=== PATIENT | female | born 1950 | race Caucasian/White ===

== ENCOUNTER 2017-10-19 23:00 | Emergency (ER) | payer OTHER ==
[2017-10-19] MEDS ORDERED: ONDANSETRON 4 MG/2 ML VIAL ONE (23:52)
[2017-10-20] MEDS ORDERED: NA CHLORIDE 0.9% 2,000 ML ONE
[2017-10-20 00:17] LABS: Absolute Lymphocytes (CBC) 0.8 K/uL (0.7-4.9); Absolute Monocytes 0.3 K/uL (0.1-1.3); Absolute Neutrophil 8.3 K/uL (1.8-8.0); Basophils % 0.2 % (0-1.3); Eosinophils % 0.4 % (0-4.4); Lymphocytes % 8.9 % (15.3-44.8); MCH 31.6 pg (27.0-35.0); MCV 94.5 fL (80-100); MPV 10.3 fL (7.6-11.3); RBC Red Blood Cell Count 4.23 M/uL (3.86-4.86)
[2017-10-20 00:53] LABS: Albumin 3.7 g/dL (3.4-5.0); Bilirubin Total 0.4 mg/dL (0.2-1.0); Potassium 3.7 mmol/L (3.5-5.1); Protein, Total 7.8 g/dL (6.4-8.2)
[2017-10-20 01:35] LABS: Blood Morphology Comment NOT SEEN (NOT SEEN); Platelet Estimate ADEQ
[2017-10-20 01:53] LABS: Urine Blood 2+ (NEG); Urine Glucose NEGATIVE (NEG); Urine Protein NEGATIVE (NEG); Urine pH 7.5 (5.0-7.0)
[2017-10-20] MEDS ORDERED: DEXAMETHASONE 10 MG/ML VIAL ONE (02:08)
--- NOTE | 2017-10-20 02:08 | ER ---
Nurse's Notes [facility] Name: Addie Fong Age: 67 yrs Sex: Female : 1950 Arrival Date: 10/19/2017 Time: 23:01 Bed 23 Private MD: Drake Taylor Diagnosis: Acute Gastroenteritis;Nausea/Vomiting/Diarrhea;Adrenal Insufficiency Presentation: 10/19 23:05 Presenting complaint: states: that pt has had cough and fever on and off today. fc Then at 2130 she started to vomit. He is concerned due to her hx of adrenal gland issues. Transition of care: patient was not received from another setting of care. Onset of symptoms was October 19, 2017. Risk Assessment: Do you want to hurt yourself or someone else? Patient reports no desire to harm self or others. Initial Sepsis Screen: Does the patient meet any 2 criteria? No. Patient's initial sepsis screen is negative. Does the patient have a suspected source of infection? No. Patient's initial sepsis screen is negative. Care prior to arrival: Medication(s) given: Tylenol, last at 1500. 23:05 Method Of Arrival: Wheelchair 23:05 Acuity: SHAYY 3 Triage Assessment: 10/20 01:30 Pain: Denies pain. rk2 01:30 General: Appears in no apparent distress. well developed, well nourished. General: rk2 Behavior is calm, cooperative, appropriate for age. GI: Reports nausea. Historical: - Allergies: 10/19 23:24 Sulfa (Sulfonamide Antibiotics); fc - Home Meds: 23:24 hydrocortisone 7.5 mg in am and 2.5 mg in the afternoon Oral tab , [Active]; aspirin 81 fc mg Oral chew 1 tab once daily [Active]; atorvastatin 10 mg Oral tab 1 tab once daily [Active]; - PMHx: 23:24 High Cholesterol; Hypertension; Adrenal gland issues; fc - PSHx: 23:24 Hysterectomy; fc - Immunization history:: Last tetanus immunization: unknown. - Social history:: Smoking status: Patient/guardian denies using tobacco. - Ebola Screening: : Patient negative for fever greater than or equal to 101.5 degrees Fahrenheit, and additional compatible Ebola Virus Disease symptoms Patient denies exposure to infectious person Patient denies travel to an Ebola-affected area in the 21 days before illness onset. Screenin:24 Abuse screen: Denies threats or abuse. Nutritional screening: No deficits noted. tl3 Tuberculosis screening: No symptoms or risk factors identified. Fall Risk None identified. Assessment: 23:24 General: Appears distressed, uncomfortable, slender, well groomed, well developed, well tl3 nourished, Behavior is calm, cooperative, appropriate for age. Neuro: Level of Consciousness is awake, alert, obeys commands, Oriented to person, place, time, situation, Appropriate for age. Cardiovascular: Heart tones S1 S2 present Patient's skin is warm and dry. Respiratory: Reports cough that is dry, posttussive emesis Airway is patent Respiratory effort is even, unlabored, Respiratory pattern is regular, symmetrical, Breath sounds are diminished bilaterally. GI: Abdomen is round Bowel sounds present X 4 quads. : No signs and/or symptoms were reported regarding the genitourinary system. EENT: No signs and/or symptoms were reported regarding the EENT system. Derm: No signs and/or symptoms reported regarding the dermatologic system. Musculoskeletal: No signs and/or symptoms reported regarding the musculoskeletal system. 10/20 00:27 Reassessment: Patient and/or family updated on plan of care and expected duration. Pain tl3 level reassessed. Patient is alert, oriented x 3, equal unlabored respirations, skin warm/dry/pink. pt is resting, no more vomiting. 00:57 Reassessment: pt has finished 8oz of hiram cesar. tl3 Vital Signs: 10/19 23:05 BP 153 / 60; Pulse 81; Resp 16; Temp 99.7(O); Pulse Ox 100% on R/A; Weight 64.41 kg fc (R); Height 5 ft. 4 in. (162.56 cm) (R); Pain 0/10; 23:27 BP 126 / 62; Pulse 88; Resp 18; Pulse Ox 100% ; tl3 10/20 00:27 BP 127 / 72; Pulse 83; Resp 18; Pulse Ox 99% on R/A; tl3 01:06 BP 125 / 70; Pulse 97; Resp 17; Pulse Ox 100% on R/A; rk2 02:13 BP 134 / 54; Pulse 88; Resp 17; Pulse Ox 99% on R/A; rk2 10/19 23:05 Body Mass Index 24.37 (64.41 kg, 162.56 cm) ED Course: 10/19 23:01 Patient arrived in ED. am2 23:02 Drake Taylor DO is Private Physician. am2 23:05 Arm band placed on Patient placed in an exam room. fc 23:21 Berto Moseley MD is Attending Physician. ps1 23:21 Triage completed. fc 23:24 Leia Walker, TRACE is Primary Nurse. tl3 23:24 Patient has correct armband on for positive identification. Placed in gown. Bed in low tl3 position. Call light in reach. Side rails up X 1. Adult w/ patient. Pulse ox on. NIBP on. 23:24 No provider procedures requiring assistance completed. tl3 23:45 Inserted saline lock: 22 gauge in left wrist, using aseptic technique. Blood collected. tl3 23:50 X-ray completed. Portable x-ray completed in exam room. Patient tolerated procedure kw well. 23:51 Chest Single View XRAY In Process Unspecified. EDMS 10/20 02:07 Drake Taylor DO is Referral Physician. ps1 02:34 IV discontinued. rk2 Administered Medications: 10/19 23:52 Drug: Zofran 4 mg Route: IVP; Site: left wrist; rk2 10/20 00:05 Follow up: Response: Nausea is decreased tl3 00:05 Drug: NS 0.9% (30 ml/kg) 30 ml/kg {Note: 1900 ml.} Route: IV; Rate: bolus; Site: left tl3 wrist; Delivery: Primary tubing; 02:14 Follow up: Response: No adverse reaction; IV Status: Completed infusion rk2 02:12 Drug: Decadron - Dexamethasone 10 mg Route: IVP; Site: left wrist; rk2 02:12 Follow up: Response: No adverse reaction; No adverse reactiong, given \T\ DC rk2 02:12 CANCELLED (Duplicate Order): Decadron - Dexamethasone 10 mg IVP once rk2 Point of Care Testing: Blood Glucose: 00:27 Blood Glucose: 48 mg/dL; tl3 Ranges: Outcome: 02:07 Discharge ordered by . ps1 02:33 Discharged to home ambulatory. rk2 02:33 Condition: good 02:33 Discharge instructions given to patient, Prescriptions given X 1. 02:35 Patient left the ED. rk2 Signatures: Dispatcher [employer] EDMS Lila Bianchi, RN RN Sherly Barahona Amanda am2 Singer, Phillip, MD MD ps1 Deann Flores RN RN rk2 Leia Walker RN RN tl3
--- NOTE | 2017-10-20 02:08 | EDPHYS ---
Physician Documentation [facility] Name: Addie Fong Age: 67 yrs Sex: Female : 1950 Arrival Date: 10/19/2017 Time: 23:01 Bed 23 Private MD: Drake Taylor ED Physician Berto Moseley HPI: 10/19 23:30 This 67 yrs old Female presents to ER via Wheelchair with complaints of ps1 Vomiting, Doctor Referral. 23:30 hx of adrenal insufficiency on chronic steroids for over a year. Presenting with n/v/d ps1 for a couple fo days. had viral gastroenteritis last week. Patient is now feeling fatigued and having multiple episodes of vomiting and diarrhea. Unable to tolerate PO. Sent in by Dr. Cormier. . Historical: - Allergies: 23:24 Sulfa (Sulfonamide Antibiotics); fc - Home Meds: 23:24 hydrocortisone 7.5 mg in am and 2.5 mg in the afternoon Oral tab , [Active]; aspirin 81 fc mg Oral chew 1 tab once daily [Active]; atorvastatin 10 mg Oral tab 1 tab once daily [Active]; - PMHx: 23:24 High Cholesterol; Hypertension; Adrenal gland issues; fc - PSHx: 23:24 Hysterectomy; fc - Immunization history:: Last tetanus immunization: unknown. - Social history:: Smoking status: Patient/guardian denies using tobacco. - Ebola Screening: : Patient negative for fever greater than or equal to 101.5 degrees Fahrenheit, and additional compatible Ebola Virus Disease symptoms Patient denies exposure to infectious person Patient denies travel to an Ebola-affected area in the 21 days before illness onset. ROS: 23:30 Eyes: Negative for injury, pain, redness, and discharge, ENT: Negative for injury, ps1 pain, and discharge, Cardiovascular: Negative for chest pain, palpitations, and edema, Respiratory: Negative for shortness of breath, cough, wheezing, and pleuritic chest pain, MS/Extremity: Negative for injury and deformity, Skin: Negative for injury, rash, and discoloration, Neuro: Negative for headache, weakness, numbness, tingling, and seizure. 23:30 Constitutional: Positive for chills, fatigue, poor PO intake. 23:30 Abdomen/GI: Positive for nausea, vomiting, and diarrhea. Exam: 23:30 Constitutional: This is a well developed, well nourished patient who is awake, alert, ps1 and in no acute distress. Head/Face: Normocephalic, atraumatic. Eyes: Pupils equal round and reactive to light, extra-ocular motions intact. Lids and lashes normal. Conjunctiva and sclera are non-icteric and not injected. Chest/axilla: Normal chest wall appearance and motion. Nontender with no deformity. No lesions are appreciated. Cardiovascular: Regular rate and rhythm. No gallops, murmurs, or rubs. Normal PMI, no JVD. No pulse deficits. Respiratory: Lungs have equal breath sounds bilaterally, clear to auscultation and percussion. No rales, rhonchi or wheezes noted. No increased work of breathing, no retractions or nasal flaring. Abdomen/GI: Soft, non-tender, with normal bowel sounds. No distension or tympany. No guarding or rebound. No evidence of tenderness throughout. Skin: Warm, dry with normal turgor. Normal color with no rashes, no lesions, and no evidence of cellulitis. MS/ Extremity: Pulses equal, no cyanosis. Neurovascular intact. Full, normal range of motion. Neuro: Awake and alert, GCS 15, oriented to person, place, time, and situation. Cranial nerves II-XII grossly intact. Sensory grossly intact. Psych: Awake, alert, with orientation to person, place and time. Behavior, mood, and affect are within normal limits. Vital Signs: 23:05 BP 153 / 60; Pulse 81; Resp 16; Temp 99.7(O); Pulse Ox 100% on R/A; Weight 64.41 kg fc (R); Height 5 ft. 4 in. (162.56 cm) (R); Pain 0/10; 23:27 BP 126 / 62; Pulse 88; Resp 18; Pulse Ox 100% ; tl3 06 00:27 BP 127 / 72; Pulse 83; Resp 18; Pulse Ox 99% on R/A; tl3 01:06 BP 125 / 70; Pulse 97; Resp 17; Pulse Ox 100% on R/A; rk2 02:13 BP 134 / 54; Pulse 88; Resp 17; Pulse Ox 99% on R/A; rk2 10/19 23:05 Body Mass Index 24.37 (64.41 kg, 162.56 cm) fc MDM: 10/19 23:30 Patient medically screened. [facility] 10/20 02:08 Data reviewed: vital signs, nurses notes, lab test result(s), radiologic studies. ps1 Medication response: Zofran relieved the patient's nausea. 02:08 ED course: cortisol low as compared to ref range. Given she is on chronic steroids and ps1 under physiologic demand from acute gastroenteritis will give decadron. Patient otherwise markedly improved. Will have patient follow up with Dr. Taylor in the morning. . 10/19 23:30 Order name: Blood Culture Adult (2) ps1 10/19 23:30 Order name: CBC with Diff; Complete Time: 01:39 ps1 10/19 23:30 Order name: Lactate; Complete Time: 00:32 ps1 10/19 23:30 Order name: Ptt, Activated; Complete Time: 01:39 ps1 10/19 23:30 Order name: Troponin (emerg Dept Use Only); Complete Time: 00:32 ps1 10/19 23:30 Order name: CMP; Complete Time: 00:56 ps1 10/19 23:30 Order name: Chest Single View XRAY ps1 10/19 23:30 Order name: Cortisol; Complete Time: 01:39 ps1 10/20 00:27 Order name: Manual Differential; Complete Time: 01:39 EDMS 10/20 01:15 Order name: Urine Dipstick--Ancillary (enter results); Complete Time: 01:57 eb 10/19 23:30 Order name: Accucheck; Complete Time: 00:27 ps1 10/19 23:30 Order name: Cardiac monitoring; Complete Time: 00:27 [facility] 10/19 23:30 Order name: EKG - Nurse/Tech; Complete Time: 00:27 [facility] 10/19 23:30 Order name: IV Saline Lock - Large Bore; Complete Time: 00:07 ps1 10/19 23:30 Order name: Labs collected and sent; Complete Time: 00:07 [facility] 10/19 23:30 Order name: O2 Per Protocol; Complete Time: 00:07 [facility] 10/19 23:30 Order name: O2 Sat Monitoring; Complete Time: 00:06 ps1 10/19 23:30 Order name: Urine Dipstick-Ancillary (obtain specimen); Complete Time: 00:06 ps1 Administered Medications: 10/19 23:52 Drug: Zofran 4 mg Route: IVP; Site: left wrist; rk2 10/20 00:05 Follow up: Response: Nausea is decreased tl3 00:05 Drug: NS 0.9% (30 ml/kg) 30 ml/kg {Note: 1900 ml.} Route: IV; Rate: bolus; Site: left tl3 wrist; Delivery: Primary tubing; 02:14 Follow up: Response: No adverse reaction; IV Status: Completed infusion rk2 02:12 Drug: Decadron - Dexamethasone 10 mg Route: IVP; Site: left wrist; rk2 02:12 Follow up: Response: No adverse reaction; No adverse reactiong, given \T\ DC rk2 02:12 CANCELLED (Duplicate Order): Decadron - Dexamethasone 10 mg IVP once rk2 Point of Care Testing: Blood Glucose: 00:27 Blood Glucose: 48 mg/dL; tl3 Ranges: Critical Glucose Levels:Adult <50 mg/dl or >400 mg/dl <40 mg/dl or >180 mg/dl Disposition: 10/20/17 02:07 Discharged to Home. Impression: Acute Gastroenteritis, Nausea/Vomiting/Diarrhea, Adrenal Insufficiency. - Condition is Stable. - Discharge Instructions: Viral Gastroenteritis. - Prescriptions for Zofran 4 mg Oral Tablet - take 1 tablet by ORAL route every 12 hours As needed; 20 tablet. - Medication Reconciliation Form, Thank You Letter, Antibiotic Education, Prescription Opioid Use form. - Follow up: Drake Taylor DO; When: Tomorrow; Reason: Further diagnostic work-up, Recheck today's complaints, Continuance of care, Re-evaluation by your physician. Follow up: Emergency Department; When: As needed; Reason: Fever > 102 F, Trouble breathing, Worsening of condition. - Problem is new. - Symptoms have improved. Signatures: Dispatcher [employer] EDMS Lila Bianchi RN RN fc Singer, Phillip, MD MD ps1 Kidder, Rhonda, RN RN rk2 Leia Walker RN RN tl3 Corrections: (The following items were deleted from the chart) 02:12 02:12 Decadron - Dexamethasone 10 mg IVP once ordered. rk2 rk2 02:35 02:07 10/20/2017 02:07 Discharged to Home. Impression: Acute Gastroenteritis; rk2 Nausea/Vomiting/Diarrhea; Adrenal Insufficiency. Condition is Stable. Forms are Medication Reconciliation Form, Thank You Letter, Antibiotic Education, Prescription Opioid Use. Follow up: Drake Taylor; When: Tomorrow; Reason: Further diagnostic work-up, Recheck today's complaints, Continuance of care, Re-evaluation by your physician. Follow up: Emergency Department; When: As needed; Reason: Fever > 102 F, Trouble breathing, Worsening of condition. Problem is new. Symptoms have improved. ps1
--- NOTE | 2017-10-20 08:34 | RAD REPORT ---
EXAM DESCRIPTION: Meli Single View10/19/2017 11:50 pm CLINICAL HISTORY: Cough COMPARISON: 2016 FINDINGS: The lungs appear clear of acute infiltrate. The heart is normal size IMPRESSION: No acute abnormalities displayed
[2017-10-20 10:30] VITALS: TEMP 99.7
[2017-10-20 10:35] VITALS: BP 134/54; O2SAT 99
== END 2017-10-20 02:35 | disposition home or self-care (01) ==
LOC: ER 23:00
DX: K52.9 Noninfective gastroenteritis and colitis, unspecified (principal); E27.40 Unspecified adrenocortical insufficiency; I10 Essential (primary) hypertension; E78.00 Pure hypercholesterolemia, unspecified; Z88.2 Allergy status to sulfonamides
CPT/HCPCS: 36415 ×2; 71045; 80053; 81003; 82533; 82962; 83605; 84484; 85025; 85730; 87040 ×2; 93005; 96361; 96374; 96375; 99284; J1100; J2405; J7030; 96365; 96366

== ENCOUNTER 2020-08-06 15:04 | Emergency (ER) | payer OTHER ==
[2020-08-06] MEDS ORDERED: LIDOCAINE 1% MPF 5 ML VIAL ONE (19:00)
[2020-08-06] MEDS ORDERED: DERMABOND SKIN ADHESIVE TOP ONE ×2 (19:25→19:42)
[2020-08-06] MEDS ORDERED: TETANUS & DIPHTHERIA TOX,ADULT 0.5 ML VIAL ONE (19:27)
--- NOTE | 2020-08-06 19:44 | ER ---
Nurse's Notes [facility] Name: Addie Fong Age: 69 yrs Sex: Female : 1950 Arrival Date: 08/06/2020 Time: 15:05 Bed 17 Private MD: Diagnosis: Laceration without foreign body, left lower leg Presentation: 08/06 15:32 Chief complaint: Patient states: Tripped and hit L leg on zigzag appliquer. <4 cm flap laceration ll1 to LLE. Bleeding controlled. Gait steady. Coronavirus screen: Client denies travel out of the [place] in the last 14 days. At this time, the client does not indicate any symptoms associated with coronavirus-19. Ebola Screen: Patient denies travel to an Ebola-affected area in the 21 days before illness onset. Complicating Factors: There are no complicating factors for this patient. Initial Sepsis Screen: Does the patient meet any 2 criteria? No. Patient's initial sepsis screen is negative. Does the patient have a suspected source of infection? Yes: Skin breakdown/wound. Risk Assessment: Do you want to hurt yourself or someone else? Patient reports no desire to harm self or others. Onset of symptoms was August 06, 2020. 15:32 Method Of Arrival: Ambulatory ll1 15:32 Acuity: SHAYY 4 ll1 Historical: - Allergies: 15:34 Sulfa (Sulfonamide Antibiotics); ll1 - PMHx: 15:34 Adrenal gland issues; High Cholesterol; Hypertension; ll1 - PSHx: 15:34 Hysterectomy; ll1 - Immunization history:: Adult Immunizations up to date, Last tetanus immunization: < 10 years ago. - Social history:: Smoking status: Patient denies any tobacco usage or history of. Screenin:49 Abuse screen: Denies threats or abuse. Nutritional screening: No deficits noted. bw Tuberculosis screening: No symptoms or risk factors identified. Fall Risk None identified. Assessment: 18:49 Pain: Complains of pain in left leg. Neuro: No deficits noted. Cardiovascular: No bw deficits noted. Respiratory: No deficits noted. GI: No deficits noted. : No deficits noted. EENT: No deficits noted. Derm: No deficits noted. Musculoskeletal: Reports pain in right leg. Injury Description: Laceration is 0.5 to 2.5 cm long, not bleeding, is bleeding a small amount. 19:13 General: Appears in no apparent distress. comfortable, Behavior is calm, cooperative. sf Pain: Complains of pain in left leg. Neuro: No deficits noted. Level of Consciousness is awake, alert, Oriented to person, place, time, situation. Cardiovascular: No deficits noted. Patient's skin is warm and dry. Respiratory: No deficits noted. Airway is patent Respiratory effort is even, unlabored, Respiratory pattern is regular, symmetrical. Derm: Wound noted left douglas Wound is V shaped laceration. Vital Signs: 15:32 BP 158 / 70; Pulse 66; Resp 16; Temp 98.0; Pulse Ox 100% ; Pain 1/10; ll1 ED Course: 15:05 Patient arrived in ED. as 15:31 Arm band placed on Patient notified of wait time. ll1 15:34 Triage completed. ll1 18:22 Angelo Oden NP is PHCP. pm1 18:22 Marco Antonio Martínez MD is Attending Physician. pm1 18:42 Luz Norris, TRACE is Primary Nurse. bw 18:49 Call light in reach. Side rails up X 1. Pulse ox on. NIBP on. Warm blanket given. bw 18:49 No provider procedures requiring assistance completed. Patient did not have IV access bw during this emergency room visit. 19:13 Primary Nurse role handed off by Luz Norris, TRACE 19:13 Evans Roman, TRACE is Primary Nurse. sf 19:52 Wound care: to laceration located on left douglas was dressed with 4X4s, Kerlix, Patient sf tolerated well. Administered Medications: 19:01 Drug: Lidocaine (1 %) 5 ml Volume: 5 ml; Route: Infiltration; bw 19:36 Follow up: Response: No adverse reaction sf 19:35 Drug: Tetanus-Diphtheria Toxoid Adult 0.5 ml {Hide Worker: [employer]. Exp: sf 10/06/2021. Lot #: [id number]. } Route: IM; Site: right deltoid; 19:52 Follow up: Response: No adverse reaction sf Outcome: 19:43 Discharge ordered by . pm1 19:52 Discharged to home ambulatory. sf 19:52 Condition: stable 19:52 Discharge instructions given to patient, family, Instructed on discharge instructions, follow up and referral plans. medication usage, Demonstrated understanding of instructions, follow-up care, medications, wound care, Prescriptions given X 1. 19:54 Patient left the ED. sf Signatures: Meeta Wells Patrick, NP [employer] pm1 Carrol Nichols RN RN ll1 Evans Roman RN RN sf Luz Norris RN RN
--- NOTE | 2020-08-06 19:44 | EDPHYS ---
Physician Documentation [facility] Name: Addie Fong Age: 69 yrs Sex: Female : 1950 Arrival Date: 08/06/2020 Time: 15:05 Bed 17 Private MD: ED Physician Marco Antonio Martínez HPI: 08/06 19:39 This 69 yrs old Female presents to ER via Ambulatory with complaints of pm1 Laceration To Leg. 19:39 The patient has a laceration related to: doing yard work, occurred at home, and there pm1 are no complicating factors. The injury was Walking by some paving stones that were stacked and meant to line her yard. Lost balance and she cut her leg against the stones. The laceration(s) is(are) located on the left douglas. Onset: The symptoms/episode began/occurred just prior to arrival. Associated signs and symptoms: Pertinent negatives: deformity, heavy bleeding, suspected foreign body. The patient has not experienced similar symptoms in the past. The patient has not recently seen a physician. Historical: - Allergies: 15:34 Sulfa (Sulfonamide Antibiotics); ll1 - PMHx: 15:34 Adrenal gland issues; High Cholesterol; Hypertension; ll1 - PSHx: 15:34 Hysterectomy; ll1 - Immunization history:: Adult Immunizations up to date, Last tetanus immunization: < 10 years ago. - Social history:: Smoking status: Patient denies any tobacco usage or history of. ROS: 19:39 Constitutional: Negative for fever, chills, and weight loss, Cardiovascular: Negative pm1 for chest pain, palpitations, and edema, Respiratory: Negative for shortness of breath, cough, wheezing, and pleuritic chest pain. 19:39 Neuro: Negative for headache, weakness, numbness, tingling, and seizure. 19:39 MS/extremity: Positive for laceration, of the left douglas, Negative for decreased range of motion, deformity. 19:39 Skin: Positive for laceration(s), of the left douglas. Exam: 19:39 Constitutional: This is a well developed, well nourished patient who is awake, alert, pm1 and in no acute distress. Head/Face: Normocephalic, atraumatic. 19:39 Cardiovascular: Exam negative for acute changes, Rate: normal, Rhythm: regular, Pulses: no pulse deficits are appreciated. 19:39 Respiratory: Exam negative for acute changes, respiratory distress, shortness of breath. 19:39 Skin: Appearance: normal except for affected area, injury, laceration(s), that can be described as clean, no foreign body, irregular, without bleeding, 6 cm Skin flap with half of it being a skin tear. Vital Signs: 15:32 BP 158 / 70; Pulse 66; Resp 16; Temp 98.0; Pulse Ox 100% ; Pain 1/10; ll1 Laceration: 19:39 Wound Repair of 6cm ( 2.4in ) subcutaneous laceration to medial aspect of left calf. pm1 Irregularly shaped.. Skin/tissue flap noted.. Distal neuro/vascular/tendon intact. Anesthesia: Local anesthetic administered with 4 mls of 1% lidocaine. Wound prep: Extensive cleansing with hibiclenz by me, Wound irrigation with saline by me, Wound explored extensively, Copious irrigation. Skin closed with 5 5-0 Prolene using simple sutures and sterile technique. Subcutaneous tissue closed with 1 5-0 fast absorbing gut using simple sutures and sterile technique. Skin closed with thin layer Adhesive skin closure using Dermabond. Dressed with 4x4's. Patient tolerated well. MDM: 18:22 Patient medically screened. pm1 19:39 Data reviewed: vital signs. Data interpreted: Pulse oximetry: on room air is 100 %. pm1 Interpretation: normal. Counseling: I had a detailed discussion with the patient and/or guardian regarding: the historical points, exam findings, and any diagnostic results supporting the discharge/admit diagnosis, the need for outpatient follow up, to return to the emergency department if symptoms worsen or persist or if there are any questions or concerns that arise at home, suture removal in 10-14 days. 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 Exp: sf 10/06/2021. Lot #: [id number]. } Route: IM; Site: right deltoid; 19:52 Follow up: Response: No adverse reaction Disposition: 08/07 07:02 Co-signature as Attending Physician, Marco Antonio Martínez MD. rn Disposition: 08/06/20 19:43 Discharged to Home. Impression: Laceration without foreign body, left lower leg. - Condition is Stable. - Discharge Instructions: Tissue Adhesive Wound Care, Stitches, [place], or Adhesive Wound Closure. - Prescriptions for Keflex 500 mg Oral Capsule - take 1 capsule by ORAL route every 8 hours for 10 days; 30 capsule. - Medication Reconciliation Form, Thank You Letter, Antibiotic Education, Prescription Opioid Use form. - Follow up: Emergency Department; When: As needed; Reason: Worsening of condition. Follow up: Private Physician; When: 10 - 14 days; Reason: Recheck today's complaints, Continuance of care, Staple/Suture removal, Re-evaluation by your physician. - Problem is new. - Symptoms have improved. Signatures: Marco Antonio Martínez MD MD rn Marinas, Patrick, CLARITZA GLOBAL CLINICAL LEADER pm1 Carrol Nichols RN RN 1 Evans Roman RN RN Luz Norris RN RN Corrections: (The following items were deleted from the chart) 08/06 19:54 19:43 08/06/2020 19:43 Discharged to Home. Impression: Laceration without foreign body, sf left lower leg. Condition is Stable. Forms are Medication Reconciliation Form, Thank You Letter, Antibiotic Education, Prescription Opioid Use. Follow up: Emergency Department; When: As needed; Reason: Worsening of condition. Follow up: Private Physician; When: 10 - 14 days; Reason: Recheck today's complaints, Continuance of care, Staple/Suture removal, Re-evaluation by your physician. Problem is new. Symptoms have improved. pm1
[2020-08-06 20:13] VITALS: BP 158/70; TEMP 98; O2SAT 100
== END 2020-08-06 19:54 | disposition home or self-care (01) ==
LOC: ER 15:04
PROC: 0JQP0ZZ Repair Left Lower Leg Subcutaneous Tissue and Fascia, Open Approach (ICD-10-PCS; principal; 2020-08-06)
DX: S81.812A Laceration without foreign body, left lower leg, initial encounter (principal); W22.8XXA Striking against or struck by other objects, initial encounter; Y93.01 Activity, walking, marching and hiking; Y92.89 Other specified places as the place of occurrence of the external cause; Z23 Encounter for immunization; Z88.2 Allergy status to sulfonamides; I10 Essential (primary) hypertension
CPT/HCPCS: 90471; 90714; 99284

== ENCOUNTER 2020-08-13 09:04 | Emergency (ER) | payer OTHER ==
--- NOTE | 2020-08-13 09:36 | EDPHYS ---
Physician Documentation [facility] Name: Addie Fong Age: 69 yrs Sex: Female : 1950 Arrival Date: 08/13/2020 Time: 09:05 Bed 24 Private MD: ED Physician Matt Gunderson HPI: 08/13 09:31 This 69 yrs old Female presents to ER via Unassigned with complaints of kb Suture Recheck. 09:31 Patient presents to ED for recheck of: laceration. The affected area is on the medial kb aspect of left calf. Previous treatment: The patient was initially treated 8 day(s) ago, the care was rendered at [facility], Treatment type: The patient's original treatment included sutures. Progress: The patient reports excellent improvement in the affected area. There has been resolution, improvement, or non-development of any drainage, fever, pain, redness or swelling. The patient has not experienced similar symptoms in the past. The patient has not recently seen a physician. Pt presents to have laceration repair evaluated. Pt states she was told to have it looked at between day 7 and 14. Today is day 8 so she wanted to get it looked at to make sure it was healing ok. Denies any issue with laceration repair, no drainage, redness, swelling. . Historical: - Allergies: 09:30 Sulfa (Sulfonamide Antibiotics); aa5 - PMHx: 09:30 Adrenal gland issues; High Cholesterol; Hypertension; aa5 - Immunization history:: Adult Immunizations unknown. - Social history:: Smoking status: Patient denies any tobacco usage or history of. ROS: 09:31 Constitutional: Negative for fever, chills, and weight loss, MS/Extremity: Negative for kb injury and deformity, Neuro: Negative for headache, weakness, numbness, tingling, and seizure. 09:31 Skin: Positive for laceration(s), of the medial aspect of left calf, sutures in place. Exam: :31 Constitutional: This is a well developed, well nourished patient who is awake, alert, kb and in no acute distress. Head/Face: Normocephalic, atraumatic. MS/ Extremity: Pulses equal, no cyanosis. Neurovascular intact. Full, normal range of motion. Neuro: Awake and alert, GCS 15, oriented to person, place, time, and situation. Moves all extremities. Normal gait. 09:31 Skin: Wound recheck: Suture laceration closure: the wound is healing well, the edges are well approximated, no evidence of dehiscence, no drainage, no erythema, no swelling. Vital Signs: 09:23 BP 139 / 62; Pulse 64; Resp 16 S; Temp 98.2(TE); Pulse Ox 100% on R/A; aa5 MDM: 09:25 Patient medically screened. kb 09:34 Data reviewed: vital signs, nurses notes. Data interpreted: Pulse oximetry: on room air kb is 100 %. Interpretation: normal. Counseling: I had a detailed discussion with the patient and/or guardian regarding: the historical points, exam findings, and any diagnostic results supporting the discharge/admit diagnosis, the need for outpatient follow up, a family practitioner, to return to the emergency department if symptoms worsen or persist or if there are any questions or concerns that arise at home. ED course: Pt educated to return on day 10 or 11 post procedure to have sutures re-evaluated for removal. . 08/13 09:31 Order name: Wound dressing; Complete Time: 09:41 kb Administered Medications: No medications were administered Disposition: 16:04 Co-signature as Attending Physician, Matt Gunderson MD I agree with the assessment and kdr plan of care. Disposition: 08/13/20 09:35 Discharged to Home. Impression: Encounter for attention to dressings, sutures and drains - evaluation of sutures and wound healing. - Condition is Stable. - Discharge Instructions: Laceration Care, Adult, Euxr-[id number]. - Medication Reconciliation Form, Thank You Letter, Antibiotic Education, Prescription Opioid Use form. - Follow up: Emergency Department; When: As needed; Reason: Worsening of condition. Follow up: Private Physician; When: 2 - 3 days; Reason: Recheck today's complaints, Continuance of care, Re-evaluation by your physician. Signatures: Heike Guidry, LAURA-C LAURA-Matt Rodriguez MD MD [facility] Edie Celis RN RN aa5 Corrections: (The following items were deleted from the chart) 09:42 09:35 08/13/2020 09:35 Discharged to Home. Impression: Encounter for attention to aa5 dressings, sutures and drains - evaluation of sutures and wound healing. Condition is Stable. Forms are Medication Reconciliation Form, Thank You Letter, Antibiotic Education, Prescription Opioid Use. Follow up: Emergency Department; When: As needed; Reason: Worsening of condition. Follow up: Private Physician; When: 2 - 3 days; Reason: Recheck today's complaints, Continuance of care, Re-evaluation by your physician. kb 10:06 09:31 The affected area is on the lateral aspect of right calf, kb kb 10:07 09:31 Skin: Positive for laceration(s), of the lateral aspect of right calf, sutures in kb place, kb
--- NOTE | 2020-08-13 09:42 | ER ---
Nurse's Notes [facility] Name: Addie Fogn Age: 69 yrs Sex: Female : 1950 Arrival Date: 08/13/2020 Time: 09:05 Bed 24 Private MD: Diagnosis: Encounter for attention to dressings, sutures and drains-evaluation of sutures and wound healing Presentation: 08/13 09:23 Chief complaint: Patient states: "I got sutures on my left leg 8 days ago and I came in aa5 to check if they are ready to come out". 09:23 Coronavirus screen: At this time, the client does not indicate any symptoms associated aa5 with coronavirus-19. Ebola Screen: Patient negative for fever greater than or equal to 101.5 degrees Fahrenheit, and additional compatible Ebola Virus Disease symptoms. Initial Sepsis Screen: Does the patient meet any 2 criteria? No. Patient's initial sepsis screen is negative. Does the patient have a suspected source of infection? No. Patient's initial sepsis screen is negative. Risk Assessment: Do you want to hurt yourself or someone else? Patient reports no desire to harm self or others. Onset of symptoms was August 13, 2020. 09:23 Acuity: SHAYY 5 aa5 09:23 Method Of Arrival: Ambulatory aa5 Historical: - Allergies: 09:30 Sulfa (Sulfonamide Antibiotics); aa5 - PMHx: 09:30 Adrenal gland issues; High Cholesterol; Hypertension; aa5 - Immunization history:: Adult Immunizations unknown. - Social history:: Smoking status: Patient denies any tobacco usage or history of. Screenin:30 Abuse screen: Denies threats or abuse. Nutritional screening: No deficits noted. aa5 Tuberculosis screening: No symptoms or risk factors identified. Fall Risk None identified. Assessment: 09:23 General: Appears comfortable, Behavior is calm, cooperative. Pain: Denies pain. Neuro: aa5 Level of Consciousness is awake, alert, obeys commands, Oriented to person, place, time, situation. Cardiovascular: Patient's skin is warm and dry. Respiratory: Airway is patent Respiratory effort is even, unlabored, Respiratory pattern is regular, symmetrical. GI: No signs and/or symptoms were reported involving the gastrointestinal system. : No signs and/or symptoms were reported regarding the genitourinary system. EENT: hearing aids noted to both ears . Derm: Skin is pink, warm \\T\\ dry. Wound that is triangular in shape noted to left douglas, mild drainage noted to wound, wound appears as necrotic with redness around it, sutures in place. Musculoskeletal: Range of motion: intact in all extremities. 09:35 Reassessment: No need for suture removal at this time per MANAGER COST. aa5 09:40 Reassessment: Wound dressed with non-adherent dressing, abd pad, and paper tape per aa5 pt's request. . 09:41 Reassessment: Patient is alert, oriented x 3, equal unlabored respirations, skin aa5 warm/dry/pink. Vital Signs: 09:23 BP 139 / 62; Pulse 64; Resp 16 S; Temp 98.2(TE); Pulse Ox 100% on R/A; aa5 ED Course: 09:05 Patient arrived in ED. as 09:10 Heike Guidry FNP-C [facility] kb 09:10 Matt Gunderson MD is Attending Physician. kb 09:23 Edie Celis, RN is Primary Nurse. aa5 09:23 Arm band placed on Patient placed in an exam room, on a stretcher. aa5 09:23 Patient has correct armband on for positive identification. Bed in low position. Call aa5 light in reach. Side rails up X 1. Adult w/ patient. 09:42 No provider procedures requiring assistance completed. Patient did not have IV access aa5 during this emergency room visit. 09:58 Triage completed. aa5 Administered Medications: No medications were administered Outcome: 09:35 Discharge ordered by . kb 09:41 Discharged to home ambulatory. aa5 09:41 Condition: stable 09:41 Discharge instructions given to patient, Instructed on discharge instructions, follow up and referral plans. Demonstrated understanding of instructions, follow-up care. 09:42 Patient left the ED. aa5 Signatures: Heike Guidry FNP-C FNP-Meeta Deluna as Edie Celis, RN RN aa5 Corrections: (The following items were deleted from the chart) 10:06 09:23 Derm: Skin is pink, warm \\T\\ dry. Wound that is triangular in shape noted to right aa5 douglas, mild drainage noted to wound, wound appears as necrotic with redness around it, sutures in place. aa5
== END 2020-08-13 09:42 | disposition home or self-care (01) ==
LOC: ER 09:04
DX: Z48.01 Encounter for change or removal of surgical wound dressing (principal); S81.812D Laceration without foreign body, left lower leg, subsequent encounter; I10 Essential (primary) hypertension; E78.00 Pure hypercholesterolemia, unspecified
CPT/HCPCS: 99281

== ENCOUNTER 2020-08-15 14:07 | Emergency (ER) | payer OTHER ==
--- NOTE | 2020-08-15 15:07 | ER ---
Nurse's Notes [facility] Name: Addie Fong Age: 69 yrs Sex: Female : 1950 Arrival Date: 08/15/2020 Time: 14:11 Bed 23 Private MD: Drake Taylor Diagnosis: Encounter for removal of sutures Presentation: 08/15 14:23 Chief complaint: Patient states: Needs sutures removed from LLE. No fever or pain since ll1 having them placed here 10 days ago. Coronavirus screen: Client denies travel out of the [place] in the last 14 days. At this time, the client does not indicate any symptoms associated with coronavirus-19. Ebola Screen: Patient denies travel to an Ebola-affected area in the 21 days before illness onset. Initial Sepsis Screen: Does the patient meet any 2 criteria? No. Patient's initial sepsis screen is negative. Does the patient have a suspected source of infection? Yes: Skin breakdown/wound. Risk Assessment: Do you want to hurt yourself or someone else? Patient reports no desire to harm self or others. Onset of symptoms was August 05, 2020. 14:23 Method Of Arrival: Ambulatory ll1 14:23 Acuity: SHAYY 4 ll1 Historical: - Allergies: 14:25 Sulfa (Sulfonamide Antibiotics); ll1 - PMHx: 14:25 Adrenal gland issues; High Cholesterol; Hypertension; ll1 - Immunization history:: Last tetanus immunization: up to date Flu vaccine is up to date. - Social history:: Smoking status: Patient denies any tobacco usage or history of. Screenin:00 Abuse screen: Denies threats or abuse. Denies injuries from another. Nutritional ss screening: No deficits noted. Tuberculosis screening: Never had TB. Fall Risk None identified. Assessment: 15:00 General: Appears in no apparent distress. comfortable. General: 5 sutures removed from ss L calf. By CLARITZA valdez. Pt tolerated well. Steri strips applied. . Pain: Denies pain. Neuro: Level of Consciousness is awake, alert, obeys commands, Oriented to person, place, time, situation. Cardiovascular: Capillary refill < 3 seconds is brisk in bilateral fingers. Respiratory: Airway is patent Respiratory effort is even, unlabored, Respiratory pattern is regular, symmetrical. EENT: Oral mucosa is moist. Derm: Skin is intact, is healthy with good turgor, Skin is dry, Skin is pink, warm \T\ dry. normal. Musculoskeletal: Circulation, motion, and sensation intact. Range of motion: intact in all extremities, Swelling absent. Vital Signs: 14:23 BP 175 / 56; Pulse 64; Resp 16; Temp 97.2; Pulse Ox 96% on R/A; Weight 67.59 kg; Height ll1 5 ft. 4 in. (162.56 cm); Pain 0/10; 14:23 Body Mass Index 25.58 (67.59 kg, 162.56 cm) ll1 ED Course: 14:11 Patient arrived in ED. mr 14:11 Drake Taylor DO is Private Physician. mr 14:25 Triage completed. ll1 14:25 Arm band placed on. ll1 14:26 Heike Guid[facility]-C [facility]. kb 14:26 Matt Gunderson MD is Attending Physician. kb 15:00 Patient has correct armband on for positive identification. Bed in low position. 15:00 Assist provider with bone marrow aspiration. Patient did not have IV access during this emergency room visit. Removal of Removed sutures from medial aspect of left calf Suture site is well healed Patient tolerated well. 15:10 Jovita Blas, RN is Primary Nurse. Administered Medications: No medications were administered Outcome: 15:00 Discharged to home ambulatory. ss 15:00 Condition: good 15:00 Discharge instructions given to patient, Demonstrated understanding of instructions, wound care. 15:06 Discharge ordered by . kb 15:16 Patient left the ED. Signatures: Heike Guidry FNP-C FNP-Rosie Araceli Penny mr Jovita Blas, RN RN Carrol Nichols RN RN ll1
--- NOTE | 2020-08-15 15:07 | EDPHYS ---
Physician Documentation [facility] Name: Addie Fong Age: 69 yrs Sex: Female : 1950 Arrival Date: 08/15/2020 Time: 14:11 Bed 23 Private MD: Drake Taylor ED Physician Matt Gunderson HPI: 08/15 14:54 This 69 yrs old Female presents to ER via Ambulatory with complaints of kb Suture Removal. 14:54 The patient has sutures on the medial aspect of left calf. Previous treatment: The kb patient was initially treated 10 day(s) ago, the care was rendered at [facility]. Sutures/mal progress: The patient has no c/o's. The wound is well-healing with no redness, swelling, discharge, or dehiscence reported. The patient has not experienced similar symptoms in the past. The patient has not recently seen a physician. Historical: - Allergies: 14:25 Sulfa (Sulfonamide Antibiotics); ll1 - PMHx: 14:25 Adrenal gland issues; High Cholesterol; Hypertension; ll1 - Immunization history:: Last tetanus immunization: up to date Flu vaccine is up to date. - Social history:: Smoking status: Patient denies any tobacco usage or history of. ROS: 14:58 Constitutional: Negative for fever, chills, and weight loss, MS/Extremity: Negative for kb injury and deformity, Neuro: Negative for headache, weakness, numbness, tingling, and seizure. 14:58 Skin: Positive for of the medial aspect of left calf, sutures in place. Exam: 15:05 Constitutional: This is a well developed, well nourished patient who is awake, alert, kb and in no acute distress. Head/Face: Normocephalic, atraumatic. MS/ Extremity: Pulses equal, no cyanosis. Neurovascular intact. Full, normal range of motion. Neuro: Awake and alert, GCS 15, oriented to person, place, time, and situation. Moves all extremities. Normal gait. 15:05 Skin: Wound recheck: Suture laceration closure: the wound is healing well, the edges are well approximated, no evidence of dehiscence, no drainage, no erythema, no swelling. Vital Signs: 14:23 BP 175 / 56; Pulse 64; Resp 16; Temp 97.2; Pulse Ox 96% on R/A; Weight 67.59 kg; Height ll1 5 ft. 4 in. (162.56 cm); Pain 0/10; 14:23 Body Mass Index 25.58 (67.59 kg, 162.56 cm) ll1 Procedures: 14:53 Suture/Staple removal: Removed 5 sutures, from medial aspect of left calf, site appears kb well healed, dressed with steri-strips. Patient tolerated well. MDM: 14:27 Patient medically screened. kb 14:53 Data reviewed: vital signs, nurses notes. Data interpreted: Pulse oximetry: on room air kb is 96 %. Interpretation: normal. Counseling: I had a detailed discussion with the patient and/or guardian regarding: the historical points, exam findings, and any diagnostic results supporting the discharge/admit diagnosis, the need for outpatient follow up, a family practitioner, to return to the emergency department if symptoms worsen or persist or if there are any questions or concerns that arise at home. Administered Medications: No medications were administered Disposition: 08/16 06:55 Co-signature as Attending Physician, Matt Gunderson MD I agree with the assessment and kdr plan of care. Disposition: 08/15/20 15:06 Discharged to Home. Impression: Encounter for removal of sutures. - Condition is Stable. - Discharge Instructions: Suture Removal, Care After. - Medication Reconciliation Form, Thank You Letter, Antibiotic Education, Prescription Opioid Use form. - Follow up: Emergency Department; When: As needed; Reason: Worsening of condition. Follow up: Private Physician; When: 2 - 3 days; Reason: Recheck today's complaints, Continuance of care, Re-evaluation by your physician. Signatures: Heike Guidry, DIRECTOR OF COMPENSATION-C DIRECTOR OF COMPENSATION-Ckb Matt Gunderson MD MD [facility] Jovita Blas RN RN Carrol Guevara RN RN ll1 Corrections: (The following items were deleted from the chart) 08/15 15:16 15:06 08/15/2020 15:06 Discharged to Home. Impression: Encounter for removal of ss sutures. Condition is Stable. Forms are Medication Reconciliation Form, Thank You Letter, Antibiotic Education, Prescription Opioid Use. Follow up: Emergency Department; When: As needed; Reason: Worsening of condition. Follow up: Private Physician; When: 2 - 3 days; Reason: Recheck today's complaints, Continuance of care, Re-evaluation by your physician. kb
== END 2020-08-15 15:16 | disposition home or self-care (01) ==
LOC: ER 14:07
DX: Z48.02 Encounter for removal of sutures (principal)
CPT/HCPCS: 99284

== ENCOUNTER 2021-08-29 09:58 | Day surgery (SDC) | payer OTHER ==
--- NOTE | 2021-08-26 09:34 | EKG ---
Test Date: 2021-08-25 Test Time: 12:12:48 High School Band Teacher: LENA MEASUREMENT RESULTS: Intervals: Rate: 54 IN: 226 QRSD: 84 QT: 448 QTc: 424 Procious: P: 80 IN: 226 QRS: -16 T: 74 INTERPRETIVE STATEMENTS: Sinus bradycardia with 1st degree AV block Nonspecific T wave abnormality Abnormal ECG Compared to ECG 10/20/2017 00:15:22 T-wave abnormality now present Sinus rhythm no longer present Left-axis deviation no longer present Electronically Signed On 08-26-21 09:31:59 CDT by Clay Theodore
[2021-08-29] MEDS ORDERED: Ringers Lactate 1,000 ML IV ONE (10:23)
[2021-08-29] MEDS ORDERED: LIDOCAINE 1% W/EPI 1:100,000 10 ML VIAL ONE (12:44)
[2021-08-29] MEDS ORDERED: propofoL 200 MG/20 ML VIAL IV ONE (12:46)
[2021-08-29] MEDS ORDERED: FENTANYL CITR 100 MCG/2 ML ONE (12:46)
[2021-08-29] MEDS ORDERED: MIDAZOLAM HCL 2 MG/2 ML INJ ONE (12:46)
[2021-08-29] MEDS ORDERED: LIDOCAINE 2% MPF 5 ML VIAL ONE (12:47)
[2021-08-29] MEDS ORDERED: HYDROCORTISONE SUC 100 MG INJ ONE (12:51)
[2021-08-29] MEDS ORDERED: ONDANSETRON 4 MG/2 ML VIAL ONE (13:00)
[2021-08-29] MEDS ORDERED: GLYCOPYRROLATE 0.2 MG/ML SYR ONE (13:08)
[2021-08-29] MEDS ORDERED: EPHEDRINE SULF 50 MG/ML VIAL ONE (13:10)
[2021-08-29] MEDS ORDERED: KETOROLAC 30 MG/ML INJ ONE (14:06)
--- NOTE | 2021-08-29 14:32 | P.OP ---
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 The head of bed was turned approximately 45 degrees for better exposure. The prior biopsy site was examined and showed slight ulceration and crusting. The area surrounding the prior biopsy site was injected with 1% lidocaine with epinephrine. The left ear, face, and neck were prepped with Betadine and draped in a sterile fashion. A 15 blade scalpel was used to make an ovoid incision around the prior biopsy with a gross margin of approximately 3 mm. The full-thickness skin was elevated sharply from the underlying cartilage. A suture was placed at the superiormost aspect to indicate 12:00 and was sent to pathology for frozen section analysis. The 9:00 margin coincided with the lateral most aspect of the helix, the 3:00 margin was located on the mid posterior aspect of the pinna. Bovie electrocautery was used to provide hemostasis around the surgical defect Plans for reconstruction were considered while awaiting frozen section. The pathologist confirmed negative deep and peripheral margins with area of residual basal cell carcinoma noted. Decision was made for a full-thickness skin graft. The defect measured 1.5 x 2.2 cm located primarily on the posterior aspect of the left pinna. A full- thickness skin graft donor site was selected from the left lower neck. The skin was injected with 1% lidocaine with epinephrine. A 2 x 5-1/2 cm fusiform incision was designed centered around an existing skin crease. A 10 scalpel blade was used to harvest the full-thickness skin graft to the layer of the subcutaneous fat. The graft was placed to side. The Bovie electrocautery was then used to undermine around the donor site in order to allow for closure. Layered closure was required in order to reduce tension in the wound and reduce scarring. The deep tissues were approximated using 4-0 Vicryl buried suture. The skin was closed in a running fashion with 5-0 fast absorbing gut The skin graft was trimmed to the appropriate size and secured to the posterior left ear in an interrupted fashion using 2-0 silk sutures. The ends of the suture were left long in order to secure a Xeroform bolster. After placement of the bolster, the surrounding skin was cleaned and dried. Antibiotic ointment was applied to the neck incision along with a sterile bandage. The procedure was concluded, all counts were correct, and the patient was transferred to the recovery room in stable condition. Complications: None Implants: none Fluids & blood products: 850ml crystalloid Transferred to: Recovery Room Condition: Good
[2021-08-29 15:12] VITALS: BP 126/60; TEMP 96.2; O2SAT 100
== END 2021-08-29 15:30 | disposition home or self-care (01) ==
LOC: OR 09:58
PROVIDERS: ATTEND Otolaryngology
PROC: 0HB4XZZ Excision of Neck Skin, External Approach (ICD-10-PCS; 2021-08-29)
PROC: 0HR3X73 Replacement of Left Ear Skin with Autologous Tissue Substitute, Full Thickness, External Approach (ICD-10-PCS; principal; 2021-08-29 11:30)
DX: C44.219 Basal cell carcinoma of skin of left ear and external auricular canal (principal); Z20.822 Contact with and (suspected) exposure to COVID-19
CPT/HCPCS: 11643; 15260; 93005; 88331; 88332; 88305; U0002; J2704; J2250; J3010; J7120; J1720; J2405

== ENCOUNTER 2022-03-22 06:36 | Observation (INO) | payer OTHER ==
[2022-03-22] MEDS ORDERED: HYDROCORTISONE SUC 100 MG INJ ONE (07:31)
[2022-03-22] MEDS ORDERED: ONDANSETRON 4 MG/2 ML VIAL ONE (07:32)
[2022-03-22] MEDS ORDERED: NA CHLORIDE 0.9% 1,000 ML ONE ×2 (07:32→13:41)
[2022-03-22] MEDS ORDERED: NA CHLORIDE 0.9% 50 ML IV ONE (07:32)
[2022-03-22] MEDS ORDERED: ACETAMINOPHEN 500 MG TAB ONE (07:32)
[2022-03-22] MEDS ORDERED: CEFTRIAXONE 1000 MG/VIAL ONE (07:32)
[2022-03-22 08:10] LABS: SARS-COV-2 RT PCR NEGATIVE (NEGATIVE)
[2022-03-22 08:23] LABS: Absolute Lymphocytes (CBC) 0.7 K/uL (0.7-4.9); Hematocrit 35.1 % (36.0-45.0); Lymphocytes % 13.8 % (15.3-44.8); MCV 96.1 fL (80-100); MPV 9.4 fL (7.6-11.3); RBC Red Blood Cell Count 3.65 M/uL (3.86-4.86)
--- NOTE | 2022-03-22 08:53 | RAD REPORT ---
EXAM DESCRIPTION: RAD - Chest Single View - 03/22/2022 8:31 am CLINICAL HISTORY: COUGH Chest pain. COMPARISON: Chest Single View dated 10/19/2017; Chest Single View dated 03/13/2016; Abdomen 1 View (K UB) dated 02/18/2016; Chest Pa And Lat (2 Views) dated 02/10/2016 FINDINGS: Portable technique limits examination quality. The lungs are grossly clear. The heart is upper limit normal in size. Tortuous thoracic aorta. No dis placed fractures. IMPRESSION: No acute intrathoracic process suspected.
--- NOTE | 2022-03-22 08:54 | EDPHYS ---
Physician Documentation [facility] Name: Addie Fong Age: 71 yrs Sex: Female : 1950 Arrival Date: 03/22/2022 Time: 06:40 Bed 19 Private MD: ED Physician Shahab Fallon HPI: 03/22 08:41 This 71 yrs old Female presents to ER via Wheelchair with complaints of keshawn Cough, Vomiting. 08:41 The patient or guardian reports cough, flu symptoms, low-grade fever, myalgias. Onset: keshawn The symptoms/episode began/occurred 1 day(s) ago. Severity of symptoms: At their worst the symptoms were moderate, in the emergency department the symptoms are unchanged. Modifying factors: The symptoms are alleviated by steroids, the symptoms are aggravated by cold weather, exertion. Associated signs and symptoms: Pertinent positives: fever, nausea, vomiting. The patient has experienced similar episodes in the past, multiple times. Historical: - Allergies: 06:50 Sulfa (Sulfonamide Antibiotics); tw5 - Home Meds: 13:52 aspirin 81 mg Oral chew 1 tab once daily [Active]; atorvastatin 10 mg Oral tab 1 tab eh3 once daily [Active]; hydrocortisone 7.5 mg in am and 2.5 mg in the afternoon Oral tab , [Active]; - PMHx: 06:50 Adrenal gland issues; High Cholesterol; Hypertension; tw5 - Immunization history:: Flu vaccine is not up to date. - Social history:: Smoking status: Patient denies any tobacco usage or history of. ROS: 08:43 Eyes: Negative for injury, pain, redness, and discharge, ENT: Negative for injury, keshawn pain, and discharge, Neck: Negative for injury, pain, and swelling, Cardiovascular: Negative for chest pain, palpitations, and edema, Back: Negative for injury and pain, : Negative for injury, bleeding, discharge, and swelling, MS/Extremity: Negative for injury and deformity, Skin: Negative for injury, rash, and discoloration, Neuro: Negative for headache, weakness, numbness, tingling, and seizure, Psych: Negative for depression, anxiety, suicide ideation, homicidal ideation, and hallucinations, Allergy/Immunology: Negative for hives, rash, and allergies, Endocrine: Negative for neck swelling, polydipsia, polyuria, polyphagia, and marked weight changes, Hematologic/Lymphatic: Negative for swollen nodes, abnormal bleeding, and unusual bruising. 08:43 Constitutional: Positive for fever. 08:43 Respiratory: Positive for cough, with no reported sputum, shortness of breath, on exertion. 08:43 Abdomen/GI: Positive for abdominal pain, nausea and vomiting. 08:43 Endocrine: Positive for weakness, hx of adrenal insufficency. Exam: 08:45 Head/Face: Normocephalic, atraumatic. Eyes: Pupils equal round and reactive to light, keshawn extra-ocular motions intact. Lids and lashes normal. Conjunctiva and sclera are non-icteric and not injected. Cornea within normal limits. Periorbital areas with no swelling, redness, or edema. ENT: Nares patent. No nasal discharge, no septal abnormalities noted. Tympanic membranes are normal and external auditory canals are clear. Oropharynx with no redness, swelling, or masses, exudates, or evidence of obstruction, uvula midline. Mucous membranes moist. Neck: Trachea midline, no thyromegaly or masses palpated, and no cervical lymphadenopathy. Supple, full range of motion without nuchal rigidity, or vertebral point tenderness. No Meningismus. Chest/axilla: Normal chest wall appearance and motion. Nontender with no deformity. No lesions are appreciated. Cardiovascular: Regular rate and rhythm with a normal S1 and S2. No gallops, murmurs, or rubs. Normal PMI, no JVD. No pulse deficits. Abdomen/GI: Soft, non-tender, with normal bowel sounds. No distension or tympany. No guarding or rebound. No evidence of tenderness throughout. Back: No spinal tenderness. No costovertebral tenderness. Full range of motion. Female : Normal external genitalia. Skin: Warm, dry with normal turgor. Normal color with no rashes, no lesions, and no evidence of cellulitis. MS/ Extremity: Pulses equal, no cyanosis. Neurovascular intact. Full, normal range of motion. Psych: Awake, alert, with orientation to person, place and time. Behavior, mood, and affect are within normal limits. 08:45 Constitutional: The patient appears febrile. 08:45 Respiratory: the patient does not display signs of respiratory distress, Respirations: normal, no acute changes, Breath sounds: rales, are not appreciated, bronchial sounds, that are mild, decreased breath sounds, that are mild, are scattered, rhonchi, that are mild, are scattered, stridor, is not appreciated, Respiratory rate: 22 08:45 Musculoskeletal/extremity: DVT Exam: No signs of deep vein thrombosis. no pain, no swelling, no tenderness, negative Homans' sign noted on exam, no appreciated bluish discoloration, no erythema, no increased warmth. 09:07 ECG was reviewed by the Attending Physician. [facility] Vital Signs: 06:46 BP 123 / 56; Pulse 84; Resp 22; Temp 100.6; Pulse Ox 95% ; Weight 65.77 kg; Height 5 tw5 ft. 4 in. (162.56 cm); 10:01 BP 124 / 41; Pulse 85; Resp 20; Pulse Ox 94% on R/A; ph 12:16 BP 102 / 49; Pulse 80; Resp 18; Pulse Ox 89% on R/A; ph 13:00 BP 111 / 50; Pulse 78; Resp 18; Temp 98.7(O); Pulse Ox 95% on R/A; eh3 14:00 BP 117 / 40; Pulse 78; Resp 18; Pulse Ox 96% on R/A; eh3 06:46 Body Mass Index 24.89 (65.77 kg, 162.56 cm) tw5 10:01 pt asleep ph 12:16 pt asleep, placed on NCat 2L ph MDM: 07:06 Patient medically screened. keshawn 08:46 Differential diagnosis: asthma, Bronchitis CHF exacerbation, Chronic Obstructive keshawn Pulmonary Disease bronchitis, flu, URI, Myocardial Infarction pneumonia. Antibiotic administration: Rocephin and Zithromax given. The patient's Wells Deep Vein Thrombosis Score was calculated as follows: Total Score: 0-2 Pts- Low Risk. Differential Diagnosis: Bronchitis Influenza Upper Respiratory Infection Pharyngitis Otitis Media Asthma Exacerbation Viral Syndrome Pneumonia. The patient's pulmonary embolism risk score was calculated as follows: Total Score: 0-2 points. This patient was found to be at low risk for a pulmonary embolism by using the Well's assessment criteria. Immunization status: Pneumococcal vaccine: Not up to date Influenza vaccine: Not up to date. Data reviewed: vital signs, nurses notes, lab test result(s), EKG, radiologic studies, plain films. 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 Test interpretation: by ED physician or midlevel provider: ECG, plain radiologic studies. Counseling: I had a detailed discussion with the patient and/or guardian regarding: the historical points, exam findings, and any diagnostic results supporting the discharge/admit diagnosis, lab results, radiology results, the need for further work-up and treatment in the hospital. 03/22 06:52 Order name: COVID-19/FLU A+B; Complete Time: 08:34 sd2 03/22 07:20 Order name: Basic Metabolic Panel; Complete Time: 18:08 [facility] 03/22 07:20 Order name: CBC with Diff; Complete Time: 08:34 [facility] 03/22 07:20 Order name: LFT's; Complete Time: 18:08 [facility] 03/22 07:20 Order name: Magnesium; Complete Time: 18:08 [facility] 03/22 07:20 Order name: NT PRO-BNP; Complete Time: 18:08 [facility] 03/22 07:20 Order name: PT-INR; Complete Time: 18:08 [facility] 03/22 07:20 Order name: Troponin HS; Complete Time: 18:08 [facility] 03/22 07:20 Order name: Blood Culture Adult (2) [facility] 03/22 07:21 Order name: Lipase; Complete Time: 18:08 [facility] 03/22 09:58 Order name: CBC with Automated Diff [facility] 03/22 09:58 Order name: CBC with Automated Diff [facility] 03/22 09:58 Order name: Comprehensive Metabolic Panel [facility] 03/22 09:58 Order name: Comprehensive Metabolic Panel [facility] 03/22 07:20 Order name: XRAY Chest (1 view); Complete Time: 18:08 [facility] 03/22 07:20 Order name: EKG; Complete Time: 07:20 [facility] 03/22 07:20 Order name: Cardiac monitoring; Complete Time: 08:00 [facility] 03/22 07:20 Order name: EKG - Nurse/Tech; Complete Time: 09:24 [facility] 03/22 07:20 Order name: IV Saline Lock; Complete Time: 08:59 [facility] 03/22 07:20 Order name: Labs collected and sent; Complete Time: 08:00 [facility] 03/22 09:58 Order name: Regular EDMS 03/22 07:20 Order name: O2 Per Protocol; Complete Time: 07:24 [facility] 03/22 07:20 Order name: O2 Sat Monitoring; Complete Time: [facility] 03/22 08:25 Order name: Labs - recollect needed: recollect green top and blue top; Complete Time: eb 08:59 EC:07 Rate is 87 beats/min. Rhythm is regular. QRS Valentine is Normal. DE interval is normal. QRS keshawn interval is normal. QT interval is normal. No Q waves. T waves are Normal. T waves are Inverted in leads I, II, aVL, V6. No ST changes noted. Clinical impression: NSR w/ Non-specific ST/T Changes. Interpreted by me. Reviewed by me. Administered Medications: 08:30 Drug: Zofran (Ondansetron) 4 mg Route: IVP; Site: left antecubital; ph 13:11 Follow up: Response: Nausea is decreased eh3 08:41 Not Given (Duplicate Order): Zithromax (azithromycin) 500 mg PO once keshawn 08:59 Drug: NS 0.9% 500 ml Route: IV; Rate: bolus; Site: right hand; ph 09:59 Follow up: Response: No adverse reaction; IV Status: Completed infusion; IV Intake: ph 500ml 08:59 Drug: Tylenol 1000 mg Route: PO; ph 10:00 Follow up: Response: No adverse reaction ph 08:59 Drug: Solu-CORTEF (hyrdoCORTISONE) 100 mg Route: IVP; Site: right hand; ph 10:00 Follow up: Response: No adverse reaction ph 09:35 Drug: Rocephin (cefTRIAXone) 1 grams Route: IV; Rate: per protocol; Site: right hand; ph 10:00 Follow up: Response: No adverse reaction; IV Status: Completed infusion ph 09:35 Drug: Tamiflu (oseltamivir) 75 mg Route: PO; ph 10:00 Follow up: Response: No adverse reaction ph 09:59 Drug: NS 0.9% 1000 ml Route: IV; Rate: 125 ml/hr; Site: right hand; ph 10:01 Follow up: Response: No adverse reaction; IV Status: Infusion continued upon admission ph 09:59 Drug: Zithromax (azithromycin) 500 mg Route: IVPB; Infused Over: 1 hrs; Site: right ph hand; 13:11 Follow up: Response: No adverse reaction; IV Status: Completed infusion; IV Intake: eh3 250ml Disposition Summary: 03/22/22 08:54 Hospitalization Ordered Hospitalization Status: Observation keshawn Provider: Marvin Morocho cha Condition: Fair keshawn Problem: new keshawn Symptoms: have improved keshawn Bed/Room Type: Standard keshawn Location: [facility] ER HOLD(03/22/22 12:21) eb Room Assignment: ERHOLD-(03/22/22 12:21) eb Diagnosis - Dehydration keshawn - Other specified disorders of adrenal gland - adrenal insufficency keshawn - Vomiting keshawn - Weakness keshawn - Influenza due to identified novel influenza A virus keshawn - Cough keshawn - Fever, unspecified keshawn Forms: - Medication Reconciliation Form keshawn - SBAR form keshawn Signatures: Dispatcher [employer] EDShahab Felix MD MD cha Hall, Patricia, RN RN Nancy Campos Tiffany [facility] Tiana Baum RN RN eh3 Corrections: (The following items were deleted from the chart) 12: 08:54 Telemetry/MedSurg (observation) keshawn eb 12:21 08:54 keshawn eb 12:21 12:21 eb eb
--- NOTE | 2022-03-22 08:54 | ER ---
Nurse's Notes [facility] Name: Addie Fong Age: 71 yrs Sex: Female : 1950 Arrival Date: 03/22/2022 Time: 06:40 Bed 19 Private MD: Diagnosis: Dehydration;Other specified disorders of adrenal gland-adrenal insufficency;Vomiting;Weakness;Influenza due to identified novel influenza A virus;Cough;Fever, unspecified Presentation: 03/22 06:46 Chief complaint: Spouse and/or significant other states: "She was coughing all day tw5 yesterday. I didn't really pay attention to it. Around 2 AM she woke up coughing really bad. I guess around 4 AM she started throwing up. She has adrenal insufficiency and her doctor said that if she threw up more than twice to bring her to the ER.". Coronavirus screen: Vaccine status: Patient reports receiving the 2nd dose of the covid vaccine. Moderna. Ebola Screen: Patient negative for fever greater than or equal to 101.5 degrees Fahrenheit, and additional compatible Ebola Virus Disease symptoms Patient denies exposure to infectious person. Patient denies travel to an Ebola-affected area in the 21 days before illness onset. Initial Sepsis Screen: Does the patient meet any 2 criteria? No. Patient's initial sepsis screen is negative. Does the patient have a suspected source of infection? Yes: Productive cough/pneumonia. Risk Assessment: Do you want to hurt yourself or someone else? Patient reports no desire to harm self or others. Onset of symptoms was March 22, 2022. 06:46 Method Of Arrival: Wheelchair tw5 06:46 Acuity: SHAYY 3 tw5 Triage Assessment: 06:50 General: Appears uncomfortable, Behavior is appropriate for age, drowsy. Pain: Denies tw5 pain. GI: Reports nausea, vomiting. Historical: - Allergies: 06:50 Sulfa (Sulfonamide Antibiotics); tw5 - Home Meds: 13:52 aspirin 81 mg Oral chew 1 tab once daily [Active]; atorvastatin 10 mg Oral tab 1 tab eh3 once daily [Active]; hydrocortisone 7.5 mg in am and 2.5 mg in the afternoon Oral tab , [Active]; - PMHx: 06:50 Adrenal gland issues; High Cholesterol; Hypertension; tw5 - Immunization history:: Flu vaccine is not up to date. - Social history:: Smoking status: Patient denies any tobacco usage or history of. Screenin:05 Abuse screen: Denies threats or abuse. Denies injuries from another. Nutritional ph screening: No deficits noted. Tuberculosis screening: No symptoms or risk factors identified. Fall Risk None identified. Assessment: 08:04 General: Appears in no apparent distress. uncomfortable, well groomed, Behavior is ph calm, cooperative, appropriate for age, Reports chills for 12-24 hours. Pain: Denies pain. Neuro: Level of Consciousness is awake, alert, obeys commands, Oriented to person, place, time, situation. Cardiovascular: Capillary refill < 3 seconds in bilateral fingers Patient's skin is warm and dry. Respiratory: Airway is patent Respiratory effort is even, unlabored, Respiratory pattern is regular, symmetrical. GI: Abdomen is non-distended, Reports nausea, vomiting, Patient currently denies abdominal pain. Derm: Skin is pink, warm \\T\\ dry. 12:00 Reassessment: Patient appears in no apparent distress at this time. Patient and/or eh3 family updated on plan of care and expected duration. Pain level reassessed. Patient is alert, oriented x 3, equal unlabored respirations, skin warm/dry/pink. 13:00 Reassessment: Patient appears in no apparent distress at this time. Patient and/or eh3 family updated on plan of care and expected duration. Pain level reassessed. Patient is alert, oriented x 3, equal unlabored respirations, skin warm/dry/pink. 14:00 Reassessment: Patient appears in no apparent distress at this time. Patient and/or eh3 family updated on plan of care and expected duration. Pain level reassessed. Patient is alert, oriented x 3, equal unlabored respirations, skin warm/dry/pink. Vital Signs: 06:46 BP 123 / 56; Pulse 84; Resp 22; Temp 100.6; Pulse Ox 95% ; Weight 65.77 kg; Height 5 tw5 ft. 4 in. (162.56 cm); 10:01 BP 124 / 41; Pulse 85; Resp 20; Pulse Ox 94% on R/A; ph 12:16 BP 102 / 49; Pulse 80; Resp 18; Pulse Ox 89% on R/A; ph 13:00 BP 111 / 50; Pulse 78; Resp 18; Temp 98.7(O); Pulse Ox 95% on R/A; eh3 14:00 BP 117 / 40; Pulse 78; Resp 18; Pulse Ox 96% on R/A; eh3 06:46 Body Mass Index 24.89 (65.77 kg, 162.56 cm) tw5 10:01 pt asleep ph 12:16 pt asleep, placed on NCat 2L ph ED Course: 06:40 Patient arrived in ED. rg4 06:50 Triage completed. tw5 06:50 Arm band placed on. tw5 07:06 Shahab Fallon MD is Attending Physician. keshawn 07:10 Neisha Baum RN is Primary Nurse. ph 07:12 COVID swab sent to lab. Flu and/or RSV swab sent to lab. tm3 08:04 Missed attempt(s): 22 gauge in left antecubital area. Bleeding controlled, band aid ph applied, catheter tip intact. 08:30 Inserted saline lock: 24 gauge in right hand, using aseptic technique. Blood collected. ph 08:33 XRAY Chest (1 view) In Process Unspecified. EDMS 08:52 Marvin Morocho MD is Hospitalizing Provider. keshawn 09:03 EKG done, by ED staff. tm3 10:19 Primary Nurse role handed off by Neisha Baum RN ph 12:07 Neisha Baum RN is Primary Nurse. ph 12:17 No provider procedures requiring assistance completed. Patient admitted, IV remains in ph place. 12:18 Patient has correct armband on for positive identification. Bed in low position. Call ph light in reach. Side rails up X 1. Pulse ox on. NIBP on. 13:00 Diet: Patient given a heart healthy meal tray. Tolerated well. Assisted to bathroom. eh3 Ambulated with cane to bathroom and back to room with standby assistance. Tolerated well. 13:16 Primary Nurse role handed off by Neisha Baum RN eh3 13:16 Tiana Baum RN is Primary Nurse. eh3 Administered Medications: 08:30 Drug: Zofran (Ondansetron) 4 mg Route: IVP; Site: left antecubital; ph 13:11 Follow up: Response: Nausea is decreased eh3 08:41 Not Given (Duplicate Order): Zithromax (azithromycin) 500 mg PO once keshawn 08:59 Drug: NS 0.9% 500 ml Route: IV; Rate: bolus; Site: right hand; ph 09:59 Follow up: Response: No adverse reaction; IV Status: Completed infusion; IV Intake: ph 500ml 08:59 Drug: Tylenol 1000 mg Route: PO; ph 10:00 Follow up: Response: No adverse reaction ph 08:59 Drug: Solu-CORTEF (hyrdoCORTISONE) 100 mg Route: IVP; Site: right hand; ph 10:00 Follow up: Response: No adverse reaction ph 09:35 Drug: Rocephin (cefTRIAXone) 1 grams Route: IV; Rate: per protocol; Site: right hand; ph 10:00 Follow up: Response: No adverse reaction; IV Status: Completed infusion ph 09:35 Drug: Tamiflu (oseltamivir) 75 mg Route: PO; ph 10:00 Follow up: Response: No adverse reaction ph 09:59 Drug: NS 0.9% 1000 ml Route: IV; Rate: 125 ml/hr; Site: right hand; ph 10:01 Follow up: Response: No adverse reaction; IV Status: Infusion continued upon admission ph 09:59 Drug: Zithromax (azithromycin) 500 mg Route: IVPB; Infused Over: 1 hrs; Site: right hand; 13:11 Follow up: Response: No adverse reaction; IV Status: Completed infusion; IV Intake: eh3 250ml Medication: 12:17 VIS not applicable for this client. ph Intake: 09:59 IV: 500ml; Total: 500ml. ph 13:11 IV: 250ml; Total: 750ml. eh3 Outcome: 08:54 Decision to Hospitalize by Provider. keshawn 13:53 Admitted to ER Hold. Please see [facility] for further documentation. 3 13:53 Condition: stable 13:53 Instructed on the need for admit. 03/23 08:35 Patient left the ED. vg1 Signatures: Dispatcher [employer] EDMS Alin Fuentes tm3 Shahab Fallon MD MD cha Hall, Patricia, RN RN ph Garcia, Rubi rg4 Gladys Preston RN RN vg1 Alix Rodriguez tw5 Tiana Baum RN RN 3 Corrections: (The following items were deleted from the chart) 03/22 13:52 13:00 BP 111 / 50; Pulse 78bpm; Resp 18bpm; Pulse Ox 95% RA; eh3 eh3 20:04 15:00 Reassessment: Patient appears in no apparent distress at this time. Patient eh3 and/or family updated on plan of care and expected duration. Pain level reassessed. Patient is alert, oriented x 3, equal unlabored respirations, skin warm/dry/pink. eh3
[2022-03-22 09:16] LABS: Protime INR 1.17
[2022-03-22] MEDS ORDERED: AZITHROMYCIN 500 MG INJ IVPB ONE (09:17)
[2022-03-22] MEDS ORDERED: OSELTAMIVIR 75 MG CAP ONE (09:17)
[2022-03-22] MEDS ORDERED: NA CHLORIDE 0.9% 250 ML ONE (09:17)
[2022-03-22] MEDS ORDERED: ONDANSETRON 4 MG/2 ML VIAL IV PRN (09:54)
[2022-03-22] MEDS ORDERED: ACETAMINOPHEN 500 MG TAB PO PRN (09:54)
--- NOTE | 2022-03-22 09:58 | P.HP ---
Certification for Inpatient Patient admitted to: Observation With expected LOS: <2 Midnights Practitioner: I am a practitioner with admitting privileges, knowledge of patient current condition, hospital course, and medical plan of care. Services: Services provided to patient in accordance with Admission requirements found in Title 42 Section 412.3 of the Code of Federal Regulations Patient History Date of Service: 03/22/22 Reason for admission: Feeling weak fever flulike symptoms History of Present Illness: Patient is 71 years of age with a history of Cottle's disease became sick suddenly low-grade fever flu denies any other pulmonary complaints and it appeared in the hospital she has a history of Cottle's disease does take some steroids otherwise denies any complaints Allergies sulfamethoxazole [From Bactrim] Allergy (Verified 08/25/21 12:56) Nausea/Vomiting Sulfa (Sulfonamide Antibio Allergy (Uncoded 08/25/21 12:56) Nausea/Vomiting Home Medications: Aspirin Chewable [Aspirin Chewable*] 81 mg PO DAILY 05/23/13 Atorvastatin Calcium [Lipitor] 10 mg PO DAILY 05/23/13 Amlodipine [Norvasc*] 10 mg PO DAILY #30 tab 02/27/16 Calcium Carbonate [Calcium] 1 tab PO DAILY 08/25/21 Cholecalciferol (Vitamin D3) [Vitamin D 5,000 Iu Cap] 5,000 unit PO DAILY 08/25/21 Docosahexanoic AC/Epa [Fish Oil 1,000 MG CAP] 1,000 mg PO DAILY 08/25/21 Hydrocortisone [Cortef] 7.5 mg PO DAILY 08/25/21 Levothyroxine Sodium [Unithroid] 0.325 mg PO DAILY 08/25/21 Lutein 10 mg PO DAILY 08/25/21 estradioL [Estradiol (Once Weekly)] 1 each TD EVERY 7TH DAY 08/25/21 Ibuprofen [Advil] 400 mg PO PRN 08/29/21 - Past Medical/Surgical History Diabetic: No -: HTN -: HIGH CHOLESTEROL -: Renal insufficiency -: HYSTERECTOMY - Social History Smoking Status: Never smoker Alcohol use: No CD- Drugs: No Caffeine use: Yes Review of Systems 10-point ROS is otherwise unremarkable General: Weakness Physical Examination - Vital Signs Temperature: 100.6 F Blood Pressure: 123/56 Pulse: 84 Respirations: 22 Pulse Ox (%): 95 - Physical Exam General: Alert, In no apparent distress, Oriented x3 HEENT: Atraumatic Neck: Supple Respiratory: Clear to auscultation bilaterally, Normal air movement Cardiovascular: No edema, Normal pulses, Regular rate/rhythm Gastrointestinal: Normal bowel sounds, Soft and benign Musculoskeletal: No clubbing, No swelling, No contractures Integumentary: No rashes, No breakdown, No significant lesion Neurological: Normal speech, Normal strength at 5/5 x4 extr - Studies Laboratory Data (last 24 hrs) 03/22/22 08:55: PT 12.9 H, INR 1.17 03/22/22 08:00: WBC 4.90, Hgb 11.7 L, Hct 35.1 L, Plt Count 182 Assessment and Plan - Problems (Diagnosis) (1) Influenza A H1N1 infection Current Visit: Yes Status: Acute Plan: Patient is 71 years of age with a history of Cottle's disease admitted with acute onset of fever profound weakness ended up here in the hospital positive for influenza A patient is currently vital signs are stable borderline temperature normal other vital signs plan to admit IV fluids high doses of steroids chest x-ray is clear Discharge Plan: Home Plan to discharge in: 24 Hours - Advance Directives Does patient have a Living Will: No Does patient have a Durable POA for Healthcare: No
[2022-03-22] MEDS: NA CHLORIDE 0.9% 1,000 ML IV SCH ×2 (10:00→20:00)
[2022-03-22 10:15] LABS: ALT/SGPT 35 U/L (12-78); Albumin 3.5 g/dL (3.4-5.0); Alkaline Phosphatase 49 U/L (45-117); BUN Blood Urea Nitrogen 13 mg/dL (7-18); Bicarbonate 26 mmol/L (21-32); Bilirubin Total 0.5 mg/dL (0.2-1.0); Glomerular Filtration Rate 55 ml/min (=/>90); Glucose Level 59 mg/dL (74-106); Lipase 106 U/L (73-393); NT PRO-BNP 341 pg/mL (<125); Protein, Total 7.6 g/dL (6.4-8.2); Sodium Level 139 mmol/L (136-145); Troponin High Sensitivity 6.6 pg/mL (<58.9)
[2022-03-22 10:16] LABS: AST/SGOT 42 U/L (15-37); Bilirubin Direct < 0.1 mg/dL (0-0.2); Magnesium 2.1 mg/dL (1.8-2.4); Potassium 4.3 mmol/L (3.5-5.1)
[2022-03-22] MEDS: OSELTAMIVIR 75 MG CAP PO SCH ×2 (10:30→21:00)
[2022-03-22 13:49] VITALS: BMI 24.8
[2022-03-22] MEDS ORDERED: HYDROCORTISONE SUC 100 MG INJ IV SCH (21:00)
[2022-03-22] MEDS ORDERED: FUROSEMIDE 20 MG/ 2ML VIAL ONE (22:25)
[2022-03-22] MEDS ORDERED: TRAMADOL HCL 50 MG TAB ONE (22:25)
[2022-03-23 02:36] VITALS: TEMP 98.4
[2022-03-23 03:46] LABS: Absolute Lymphocytes (CBC) 0.6 K/uL (0.7-4.9); Hematocrit 30.2 % (36.0-45.0); Lymphocytes % 15.6 % (15.3-44.8); MCV 96.5 fL (80-100); MPV 9.1 fL (7.6-11.3); RBC Red Blood Cell Count 3.13 M/uL (3.86-4.86)
[2022-03-23 04:00] VITALS: BP 116/47
[2022-03-23 04:05] LABS: Albumin 2.9 g/dL (3.4-5.0); Bilirubin Total 0.3 mg/dL (0.2-1.0); Potassium 3.8 mmol/L (3.5-5.1); Protein, Total 6.2 g/dL (6.4-8.2)
[2022-03-23] MEDS: NA CHLORIDE 0.9% 1,000 ML IV SCH (06:00)
[2022-03-23] MEDS ORDERED: NA CHLORIDE 0.9% 1,000 ML ONE (06:25)
--- NOTE | 2022-03-23 07:31 | P.DS ---
Admission Date: 03/22/22 Discharge Date: 03/23/22 Disposition: ROUTINE DISCHARGE Discharge Condition: GOOD Reason for Admission: Feeling weak fever flulike symptoms Hospital Course: DIAGNOSES: # Influenza A Infection # History of Adrenal Insuffiency # Hypertension # Hypothyroidism # Dyslipidemia HOSPITAL COURSE: Mrs. Addie Fogn is a pleasant 71 year old female with a past medical history significant for adrenal insufficiency, hypertension, dyslipidemia, and hypothyroidism who was admitted to the [facility] on 03/22/2022 for fever, weakness, nausea, vomiting, and cough. She was admitted to the Medicine service. Upon further evaluation, she was found to test positive for Influenza A. Her chest x-ray revealed, "no acute intrathoracic process suspected." She was treated with oseltamivir, hydrocortisone, ondansetron, and IV fluids. Over the course of her hospitalization, her symptoms improved significantly. This morning, she states that she feels very well and would like to be discharged home. She was able to ambulate around her room without any issues. She was cleared to be discharged home with close follow-up with her PCP, Dr. Taylor. I spoke with Dr. Taylor and updated him on her hospital course. On 03/23/2022, she was seen on morning rounds and deemed medically stable for discharge. She was discharged with instructions to schedule follow-up appointments with her PCP (Dr. Taylor). She was provided prescriptions for oseltamivir, benzonatate, and ondansetron. She was given the opportunity to ask questions and reported no further questions. Furthermore, all questions were answered to the best of my ability. A copy of this discharge summary will be sent to the above providers to facilitate continuity of care. Today, I personally spent 25 minutes on her case, of which greater than 50% of the time was spent in patient education, counseling, and coordination of care as described above. Vital Signs/Physical Exam: Temp Pulse Resp BP Pulse Ox 98.4 F 60 16 116/47 L 96 03/23/22 00:00 03/23/22 03:58 03/23/22 03:58 03/23/22 03:58 03/23/22 03:58 General: Alert, In no apparent distress, Oriented x3 HEENT: Atraumatic, PERRLA, Mucous membr. moist/pink, EOMI, Sclerae nonicteric Neck: Supple, JVD not distended Respiratory: Clear to auscultation bilaterally, Normal air movement Cardiovascular: No edema, Regular rate/rhythm, Normal S1 S2, No gallops, No r ubs, No murmurs Capillary refill: <2 Seconds Gastrointestinal: Normal bowel sounds, Soft and benign, Non-distended, No tenderness, No rebound, No guarding Musculoskeletal: No clubbing Integumentary: No rashes Neurological: Normal gait, Normal speech, Cranial nerves 3-12 intact, Normal affect Laboratory Data at Discharge: WBC 4.10 K/uL (4.3-10.9) L 03/23/22 02:56 Hgb 10.1 g/dL (12.0-15.0) L D 03/23/22 02:56 Hct 30.2 % (36.0-45.0) L 03/23/22 02:56 Plt Count 153 K/uL (152-406) 03/23/22 02:56 PT 12.9 SECONDS (9.5-12.5) H 03/22/22 08:55 INR 1.17 03/22/22 08:55 Sodium 140 mmol/L (136-145) 03/23/22 02:56 Potassium 3.8 mmol/L (3.5-5.1) 03/23/22 02:56 BUN 13 mg/dL (7-18) 03/23/22 02:56 Creatinine 0.81 mg/dL (0.55-1.3) 03/23/22 02:56 Glucose 119 mg/dL (74-106) H 03/23/22 02:56 Magnesium 2.1 mg/dL (1.8-2.4) 03/22/22 08:55 Total Bilirubin 0.3 mg/dL (0.2-1.0) 03/23/22 02:56 AST 34 U/L (15-37) 03/23/22 02:56 ALT 38 U/L (12-78) 03/23/22 02:56 Alkaline Phosphatase 36 U/L (45-117) L D 03/23/22 02:56 Lipase 106 U/L (73-393) 03/22/22 08:55 Home Medications: Aspirin Chewable [Aspirin Chewable*] 81 mg PO DAILY 05/23/13 Atorvastatin Calcium [Lipitor] 10 mg PO DAILY 05/23/13 Amlodipine [Norvasc*] 10 mg PO DAILY #30 tab 02/27/16 Calcium Carbonate [Calcium] 1 tab PO DAILY 08/25/21 Cholecalciferol (Vitamin D3) [Vitamin D 5,000 IU Cap*] 5,000 unit PO DAILY 08/25/21 Docosahexanoic AC/Epa [Fish Oil 1,000 MG*] 1,000 mg PO DAILY 08/25/21 Hydrocortisone [Cortef] 7.5 mg PO DAILY 08/25/21 Levothyroxine Sodium [Unithroid] 0.325 mg PO DAILY 08/25/21 Lutein 10 mg PO DAILY 08/25/21 estradioL [Estradiol (Once Weekly)] 1 each TD EVERY 7TH DAY 08/25/21 Ibuprofen [Advil] 400 mg PO PRN 08/29/21 Benzonatate 100 mg PO TID PRN 7 Days #20 tab 03/23/22 Ondansetron [Zofran] 4 mg PO Q8HP PRN 7 Days #20 tab 03/23/22 Oseltamivir [Tamiflu*] 75 mg PO BID 4 Days #8 cap 03/23/22 New Medications: Ondansetron [Zofran] 4 mg PO Q8HP PRN 7 Days #20 tab PRN Reason: Nausea / Vomiting RX: Benzonatate 100 mg PO TID PRN 7 Days #20 tab PRN Reason: Cough RX: Oseltamivir [Tamiflu*] 75 mg PO BID 4 Days #8 cap Physician Discharge Instructions: 1. Please schedule a follow-up appointment with your PCP (Dr. Taylor) in 3-5 days Diet: Regular Activity: Ad rudy Followup: Drake Taylor DO [Primary Care Provider] - Time spent managing pt's care (in minutes): 25
[2022-03-23 08:45] VITALS: O2SAT 96
--- NOTE | 2022-03-23 15:31 | EKG ---
Test Date: 2022-03-22 Test Time: 09:00:13 Land Checker: HORACE MEASUREMENT RESULTS: Intervals: Rate: 87 NM: 206 QRSD: 92 QT: 368 QTc: 442 [place]: P: 45 NM: 206 QRS: 4 T: 125 INTERPRETIVE STATEMENTS: Normal sinus rhythm Nonspecific T wave abnormality Abnormal ECG Compared to ECG 08/25/2021 12:12:48 Sinus bradycardia no longer present First degree AV block no longer present T-wave abnormality still present Electronically Signed On 03-23-22 15:28:41 MEDICAL OFFICE ASST by Murphy Lopez
== END 2022-03-23 08:37 | disposition home or self-care (01) ==
LOC: ER 06:36 → ERHOLD 09:54
PROVIDERS: ADMIT Internal Medicine Sleep Medicine; ATTEND Internal Medicine
DX: J09.X2 Influenza due to identified novel influenza A virus with other respiratory manifestations (principal); E27.40 Unspecified adrenocortical insufficiency; I10 Essential (primary) hypertension; E03.9 Hypothyroidism, unspecified; E78.5 Hyperlipidemia, unspecified; Z20.822 Contact with and (suspected) exposure to COVID-19; Z88.2 Allergy status to sulfonamides
CPT/HCPCS: 93005; 87040 ×2; 85025 ×2; 80048; 36415; 83735; 85610; 80076; 84484; 83690; 80053; 83880; 0240U; 71045; 99285; J1940; J0456; J7050; J7030 ×3; J1720; J2405; G0378 ×3

== ENCOUNTER 2022-03-31 18:30 | Emergency (ER) | payer OTHER ==
[2022-03-31 19:26] LABS: Absolute Lymphocytes (CBC) 0.4 K/uL (0.7-4.9); Hematocrit 39.1 % (36.0-45.0); Lymphocytes % 5.4 % (15.3-44.8); MCV 95.2 fL (80-100); MPV 8.6 fL (7.6-11.3); RBC Red Blood Cell Count 4.11 M/uL (3.86-4.86)
[2022-03-31 19:45] LABS: Albumin 3.5 g/dL (3.4-5.0); Bilirubin Total 0.5 mg/dL (0.2-1.0); Potassium 3.7 mmol/L (3.5-5.1); Protein, Total 7.4 g/dL (6.4-8.2)
[2022-03-31] MEDS ORDERED: NA CHLORIDE 0.9% 1,000 ML ONE (19:59)
[2022-03-31] MEDS ORDERED: FAMOTIDINE 20 MG/2 ML VIAL IV ONE (19:59)
[2022-03-31] MEDS ORDERED: ONDANSETRON 4 MG/2 ML VIAL ONE ×2 (19:59→20:27)
[2022-03-31] MEDS ORDERED: PROMETHAZINE INJ 25 MG/ML AMP ONE ×2 (20:48→22:33)
--- NOTE | 2022-03-31 21:53 | RAD REPORT ---
EXAM DESCRIPTION: CTAbdomen Pelvis W Contrast - 03/31/2022 9:29 pm CLINICAL HISTORY: Abdominal pain. vomiting COMPARISON: CT ABD PELVIS W CONTRAST dated 05/23/2013 TECHNIQUE: Biphasic CT imaging of the abdomen and pelvis was performed with 100 ml non-ionic IV cont rast. All CT scans are performed using dose optimization technique as appropriate and may include automated exposure control or mA/KV adjustment according to patient size. FINDINGS: The lung bases are clear. The liver, spleen, pancreas, adrenal glands and kidneys are within normal limits. Multiple fluid-filled and thickened small bowel loops are seen throughout the abdomen. This most like ly indicates small bowel enteritis. Prominent sigmoid diverticulosis coli is noted without diverticul itis. The appendix is normal. No evidence of significant lymphadenopathy. No suspicious bony findings. IMPRESSION: Significant fluid-filled small bowel loops with thickening and enhancement seen in the a bdomen suggests a nonspecific enteritis. Inflammatory or infectious etiologies would be favored. Smal l bowel ischemia not completely ruled out although no secondary signs are seen to indicate bowel isch emia. Prominent sigmoid diverticulosis coli without diverticulitis.
--- NOTE | 2022-03-31 22:50 | EDPHYS ---
Physician Documentation [facility] Name: Addie Fong Age: 71 yrs Sex: Female : 1950 Arrival Date: 03/31/2022 Time: 18:31 Bed 27 Private MD: Drake Taylor ED Physician Scott Foster HPI: 03/31 20:22 This 71 yrs old Female presents to ER via Ambulatory with complaints of Vomiting. kb 20:22 The patient presents to the emergency department with nausea, vomiting. Onset: The kb symptoms/episode began/occurred today, at 15:30. Possible causes: unknown. The symptoms are aggravated by nothing. The symptoms are alleviated by nothing. Associated signs and symptoms: Pertinent positives: nausea, vomiting, Pertinent negatives: abdominal pain, fever. Severity of symptoms: At their worst the symptoms were mild in the emergency department the symptoms are unchanged. The patient has not experienced similar symptoms in the past. The patient has not recently seen a physician. Pt reports she had three episodes of vomiting starting at 1530 today. Historical: - Allergies: 18:55 Sulfa (Sulfonamide Antibiotics); db - PMHx: 18:55 Adrenal gland issues; High Cholesterol; Hypertension; db - Immunization history:: Adult Immunizations unknown, Client reports receiving the 2nd dose of the Covid vaccine. - Social history:: Smoking status: Patient denies any tobacco usage or history of. ROS: 20:22 Constitutional: Negative for fever, chills, and weight loss. kb 20:22 Abdomen/GI: Positive for nausea and vomiting, Negative for abdominal pain, diarrhea, constipation. 20:22 All other systems are negative. Exam: 20:22 Constitutional: This is a well developed, well nourished patient who is awake, alert, kb and in no acute distress. Head/Face: Normocephalic, atraumatic. ENT: Moist Mucous membranes Cardiovascular: Regular rate and rhythm with a normal S1 and S2. No gallops, murmurs, or rubs. No pulse deficits. Respiratory: Respirations even and unlabored. No increased work of breathing. Talking in full sentences Abdomen/GI: Soft, non-tender. No distention Skin: Warm, dry with normal turgor. Normal color. MS/ Extremity: Pulses equal, no cyanosis. Neurovascular intact. Full, normal range of motion. Neuro: Awake and alert, GCS 15, oriented to person, place, time, and situation. Moves all extremities. Normal gait. Psych: Awake, alert, with orientation to person, place and time. Behavior, mood, and affect are within normal limits. Vital Signs: 18:48 BP 123 / 63; Pulse 62; Resp 16; Temp 98.3(O); Pulse Ox 95% on R/A; Weight 65.77 kg; db Height 5 ft. 4 in. (162.56 cm); Pain 0/10; 20:12 BP 128 / 56; Pulse 78; Resp 16; Pulse Ox 100% on R/A; tp1 21:15 BP 120 / 68; Pulse 87; Resp 16; Pulse Ox 91% on R/A; tp1 21:59 BP 120 / 57; Pulse 73; Resp 16; Pulse Ox 96% on R/A; tp1 18:48 Body Mass Index 24.89 (65.77 kg, 162.56 cm) db MDM: 18:45 Patient medically screened. kb 20:00 Differential diagnosis: gastritis, cholecystitis, pancreatitis, appendicitis, viral cp gastroenteritis, gastroenteritis, colitis. 20:22 Data reviewed: vital signs, nurses notes. Data interpreted: Pulse oximetry: on room air kb is 100 %. Interpretation: normal. Counseling: I had a detailed discussion with the patient and/or guardian regarding: the historical points, exam findings, and any diagnostic results supporting the discharge/admit diagnosis, lab results, the need for outpatient follow up, a family practitioner, to return to the emergency department if symptoms worsen or persist or if there are any questions or concerns that arise at home. 20:48 Transition of care: After a detail discussion of the patient's case, care is kb transferred to Shahab CAMPUZANO. 22:45 ED course: VSS. Nausea markedly improved, vomiting resolved. Discussed results of labs cp and CT abd/pelvis. Will treat for viral enteritis, low suspicion for mesenteric adenitis or bacterial enteritis with normal WBC and normal lactate. Will discharge to home to continue oral hydration with antiemetics. Patient may return at any time worsening symptoms. 03/31 18:51 Order name: CBC with Diff; Complete Time: 19:28 kb 03/31 18:51 Order name: CMP; Complete Time: 20:03 kb 03/31 18:51 Order name: Lipase; Complete Time: 20:03 kb 03/31 20:48 Order name: CT Abd/Pelvis - IV Contrast Only; Complete Time: 22:01 kb 03/31 20:48 Order name: Lactate w/ 2H reflex if indic.; Complete Time: 22:01 kb 03/31 22:02 Interpretation: Reviewed. cp 03/31 18:51 Order name: IV Saline Lock; Complete Time: 19:18 kb 03/31 18:51 Order name: Labs collected and sent; Complete Time: 19:18 kb 03/31 20:22 Order name: PO challenge; Complete Time: 20:41 kb Administered Medications: 20:06 Drug: NS 0.9% 1000 ml Route: IV; Rate: 1 bolus; Site: right antecubital; tp1 21:00 Follow up: IV Status: Completed infusion; IV Intake: 1000ml tp1 20:07 Drug: Zofran (Ondansetron) 4 mg Route: IVP; Site: right antecubital; tp1 21:30 Follow up: Response: Nausea unchanged tp1 20:08 Drug: Pepcid (famotidine) 20 mg Route: IVP; Site: right antecubital; tp1 22:40 Follow up: Response: No adverse reaction tp1 20:31 Drug: Zofran (Ondansetron) 4 mg Route: IVP; Site: right antecubital; tp1 20:50 Follow up: Response: Nausea unchanged tp1 20:53 Drug: Phenergan (promethazine) 12.5 mg Route: IVP; Site: right antecubital; tp1 21:10 Follow up: Response: Nausea is decreased tp1 22:38 Drug: Phenergan (promethazine) 12.5 mg Route: IVP; Site: right antecubital; tp1 Disposition Summary: 03/31/22 22:49 Discharge Ordered Location: Home cp Problem: new cp Symptoms: have improved cp Condition: Stable cp Diagnosis - Nausea with vomiting, unspecified cp Followup: kb - With: Emergency Department - When: As needed - Reason: Worsening of condition Followup: kb - With: Private Physician - When: 2 - 3 days - Reason: Recheck today's complaints, Continuance of care, Re-evaluation by your physician Discharge Instructions: - Discharge Summary Sheet kb - Nausea and Vomiting, Adult, [id number] kb Forms: - Medication Reconciliation Form cp - Thank You Letter cp - Antibiotic Education cp - Prescription Opioid Use cp Prescriptions: - Pepcid 20 mg Oral Tablet - take 1 tablet by ORAL route every 12 hours for 10 days; 20 tablet; Refills: 0, cp Product Selection Permitted - promethazine 25 mg Oral Tablet - take 1 tablet by ORAL route every 6 hours As needed; 20 tablet; Refills: 0, cp Product Selection Permitted Signatures: Dispatcher [employer] EDHeike Orellana FNP-C FNP-Shahab Peoples PA PA Alix Norris, RN RN tp1 Arianna Najera, RN RN db
--- NOTE | 2022-03-31 22:50 | ER ---
Nurse's Notes [facility] Name: Addie Fong Age: 71 yrs Sex: Female : 1950 Arrival Date: 03/31/2022 Time: 18:31 Bed 27 Private MD: Drake Taylor Diagnosis: Nausea with vomiting, unspecified Presentation: 03/31 18:48 Chief complaint: Patient states: patient states started Wednesday with constipation took db milk of magnesia, constipation continued took Enema Wednesday, STATES TODAY VOMITING STARTED AT 3:30PM STATES VOMITED X 3. Coronavirus screen: Vaccine status: Patient reports receiving the 2nd dose of the covid vaccine. Client denies travel out of the [place] in the last 14 days. At this time, the client does not indicate any symptoms associated with coronavirus-19. Ebola Screen: Patient negative for fever greater than or equal to 101.5 degrees Fahrenheit, and additional compatible Ebola Virus Disease symptoms Patient denies exposure to infectious person. Patient denies travel to an Ebola-affected area in the 21 days before illness onset. No symptoms or risks identified at this time. Initial Sepsis Screen: Does the patient meet any 2 criteria? No. Patient's initial sepsis screen is negative. Does the patient have a suspected source of infection? No. Patient's initial sepsis screen is negative. Risk Assessment: Do you want to hurt yourself or someone else? Patient reports no desire to harm self or others. Onset of symptoms was March 31, 2022. 18:48 Method Of Arrival: Ambulatory db 18:48 Acuity: SHAYY 3 db Triage Assessment: 18:55 General: Appears in no apparent distress. Behavior is calm, cooperative, appropriate db for age. Pain: Denies pain. GI: Reports constipation, nausea, vomiting, since 3:30PM. Historical: - Allergies: 18:55 Sulfa (Sulfonamide Antibiotics); db - PMHx: 18:55 Adrenal gland issues; High Cholesterol; Hypertension; db - Immunization history:: Adult Immunizations unknown, Client reports receiving the 2nd dose of the Covid vaccine. - Social history:: Smoking status: Patient denies any tobacco usage or history of. Screenin:57 Abuse screen: Denies threats or abuse. Denies injuries from another. Nutritional db screening: No deficits noted. Tuberculosis screening: No symptoms or risk factors identified. Fall Risk None identified. No fall in past 12 months (0 pts). No secondary diagnosis (0 pts). No IV (0 pts). Ambulatory Aid- Crutches/Cane/Walker (15 pts). Gait- Normal/Bed Rest/Wheelchair (0 pts) Mental Status- Oriented to own ability (0 pts). Total Littlejohn Fall Scale indicates No Risk (0-24 pts). Assessment: 18:57 Reassessment: SEE TRIAGE FOR INITIAL ASSESSMENT. General: Appears in no apparent db distress. comfortable, Behavior is calm, cooperative, appropriate for age. Pain: Denies pain. Neuro: No deficits noted. Level of Consciousness is awake, alert, obeys commands, Oriented to person, place, time, situation, Appropriate for age. Cardiovascular: No deficits noted. Respiratory: No deficits noted. Airway is patent. GI: Abdomen is flat, non-distended, Last BM was March 30, 2022. Reports nausea, vomiting. : No deficits noted. No signs and/or symptoms were reported regarding the genitourinary system. EENT: No deficits noted. No signs and/or symptoms were reported regarding the EENT system. Derm: No deficits noted. No signs and/or symptoms reported regarding the dermatologic system. Musculoskeletal: No deficits noted. No signs and/or symptoms reported regarding the musculoskeletal system. 19:50 General: Appears in no apparent distress. comfortable, Behavior is calm, cooperative. tp1 Pain: Denies pain. Neuro: Level of Consciousness is awake, alert, obeys commands, Oriented to person, place, time, situation. Cardiovascular: Patient's skin is warm and dry. Respiratory: Airway is patent Respiratory effort is even, unlabored. GI: Abdomen is flat, non-distended, Abd is soft and non tender Reports nausea, vomiting, Patient currently denies diarrhea. : No signs and/or symptoms were reported regarding the genitourinary system. EENT: No signs and/or symptoms were reported regarding the EENT system. Derm: Skin is pink, warm \T\ dry. Musculoskeletal: Circulation, motion, and sensation intact. 20:41 Reassessment: PT is able to tolerate fluids. tp1 20:50 Reassessment: Patient appears in no apparent distress at this time. Patient is alert, tp1 oriented x 3, equal unlabored respirations, skin warm/dry/pink. pt vomiting, provider notified Patient denies pain at this time. 21:59 Reassessment: Patient appears in no apparent distress at this time. No changes from tp1 previously documented assessment. Patient is alert, oriented x 3, equal unlabored respirations, skin warm/dry/pink. states nausea has decreased Patient denies pain at this time. 22:38 Reassessment: CO nausea when sitting up or having to move around. tp1 Vital Signs: 18:48 BP 123 / 63; Pulse 62; Resp 16; Temp 98.3(O); Pulse Ox 95% on R/A; Weight 65.77 kg; db Height 5 ft. 4 in. (162.56 cm); Pain 0/10; 20:12 BP 128 / 56; Pulse 78; Resp 16; Pulse Ox 100% on R/A; tp1 21:15 BP 120 / 68; Pulse 87; Resp 16; Pulse Ox 91% on R/A; tp1 21:59 BP 120 / 57; Pulse 73; Resp 16; Pulse Ox 96% on R/A; tp1 18:48 Body Mass Index 24.89 (65.77 kg, 162.56 cm) db ED Course: 18:31 Patient arrived in ED. as 18:31 Drake Taylor DO is Private Physician. as 18:36 Heike Guidry FNP-C is PHCP. kb 18:36 Scott Foster MD is Attending Physician. kb 18:53 Arianna Najera, TRACE is Primary Nurse. db 18:55 Triage completed. db 18:55 Arm band placed on right wrist. Patient placed in an exam room. db 19:08 Inserted saline lock: 22 gauge in right antecubital area, using aseptic technique. db Blood collected. 19:19 Bed in low position. Call light in reach. Side rails up X 1. Report given to ashleigh Thomson RN. 20:12 No provider procedures requiring assistance completed. tp1 20:52 PHCP role handed off by Heike Guidry FNP-C kb 20:52 Shahab Trejo PA is PHCP. kb 21:11 Lactate w/ 2H reflex if indic. Sent. tp1 21:31 CT Abd/Pelvis - IV Contrast Only In Process Unspecified. EDMS 23:10 IV discontinued, intact, bleeding controlled, No redness/swelling at site. Pressure aa9 dressing applied. Administered Medications: 20:06 Drug: NS 0.9% 1000 ml Route: IV; Rate: 1 bolus; Site: right antecubital; tp1 21:00 Follow up: IV Status: Completed infusion; IV Intake: 1000ml tp1 20:07 Drug: Zofran (Ondansetron) 4 mg Route: IVP; Site: right antecubital; tp1 21:30 Follow up: Response: Nausea unchanged tp1 20:08 Drug: Pepcid (famotidine) 20 mg Route: IVP; Site: right antecubital; tp1 22:40 Follow up: Response: No adverse reaction tp1 20:31 Drug: Zofran (Ondansetron) 4 mg Route: IVP; Site: right antecubital; tp1 20:50 Follow up: Response: Nausea unchanged tp1 20:53 Drug: Phenergan (promethazine) 12.5 mg Route: IVP; Site: right antecubital; tp1 21:10 Follow up: Response: Nausea is decreased tp1 22:38 Drug: Phenergan (promethazine) 12.5 mg Route: IVP; Site: right antecubital; tp1 Medication: 18:57 VIS not applicable for this client. db Intake: 21:00 IV: 1000ml; Total: 1000ml. tp1 Outcome: 22:49 Discharge ordered by MD. cp 23:09 Discharged to home via wheelchair, with family. aa9 23:09 Condition: stable 23:09 Discharge instructions given to patient, family, Instructed on discharge instructions, follow up and referral plans. medication usage, Demonstrated understanding of instructions, follow-up care, medications, Prescriptions given X 2. 23:10 Patient left the ED. aa9 Signatures: Dispatcher [employer] EDMS Heike Gudiry FNP-C FNP-Ckb Martinez, Amelia as Page, Corey, PA PA cp Parker, Tiffany, RN RN tp1 Sera Eagle RN RN aa9 Arianna Najera RN RN db
[2022-03-31 23:17] VITALS: TEMP 98.3
[2022-03-31 23:21] VITALS: BP 120/57; O2SAT 96
== END 2022-03-31 23:10 | disposition home or self-care (01) ==
LOC: ER 18:30
DX: R11.2 Nausea with vomiting, unspecified (principal); I10 Essential (primary) hypertension; Z88.2 Allergy status to sulfonamides
CPT/HCPCS: 85025; 36415; 83605; 83690; 80053; 74177; Q9967; J2550 ×2; J7030; J2405 ×2; 96361; 96374; 96375; 99284

== ENCOUNTER 2024-05-16 12:38 | Emergency (ER) | payer OTHER ==
[2024-05-16 15:03] LABS: Sqamous Epithelial <5 /HPF (None Seen); Urine Bacteria None Seen /HPF (<20); Urine Bilirubin NEGATIVE (Negative); Urine Blood 2+ (Negative); Urine Clarity Turbid (Clear); Urine Color Light-Yellow (Yellow); Urine Crystals Unidentified Few /HPF (None Seen); Urine Culture Reflex Order NOT NEEDED; Urine Glucose NEGATIVE (Negative); Urine Ketones NEGATIVE (Negative); Urine Microscopic Reflex YN ORDER UMIC; Urine Mucus Slight /HPF (None Seen); Urine Nitrite NEGATIVE (Negative); Urine Protein NEGATIVE (Negative); Urine RBC 21-50 /HPF (None Seen); Urine Urobilinogen Normal (Normal); Urine WBC <5 /HPF (<5); Urine WBC Clump Rare /HPF (None Seen); Urine pH 6.5 (5.0-7.0)
[2024-05-16 15:11] LABS: SARS-CoV-2 Antigen CONTROL BLUE LINE VIS/BG OK; SARS-CoV-2 Antigen Rapid Res Negative (Negative)
--- NOTE | 2024-05-16 15:16 | EDPHYS ---
Physician Documentation [facility] Name: Addie Fong Age: 73 yrs Sex: Female : 1950 Arrival Date: 05/16/2024 Time: 12:38 Bed 23 Private MD: ED Physician Shahab Fallon HPI: 05/16 14:27 This 73 yrs old Female presents to ER via Ambulatory with complaints of Fever. cp 14:27 Onset: The symptoms/episode began/occurred yesterday. Associated signs and symptoms: cp Pertinent positives: cough, sore throat, body aches, Pertinent negatives: abdominal pain, chest pain, diarrhea, vomiting. Severity of symptoms: in the emergency department the symptoms are unchanged. Historical: - Allergies: 12:56 Sulfa (Sulfonamide Antibiotics); cm10 - PMHx: 12:56 Adrenal gland issues; High Cholesterol; Hypertension; cm10 - Immunization history:: Adult Immunizations up to date. - Infectious Disease History:: Denies. - Social history:: Smoking status: Patient denies any tobacco usage or history of. ROS: 14:30 Constitutional: Positive for body aches, chills, fever, cp 14:30 Eyes: Negative for injury, pain, redness, and discharge, cp 14:30 ENT: Positive for sore throat, Negative for drainage from ear(s), ear pain, difficulty swallowing, difficulty handling secretions, 14:30 Cardiovascular: Negative for chest pain, 14:30 Respiratory: Positive for cough, Negative for shortness of breath, wheezing, 14:30 Abdomen/GI: Negative for abdominal pain, vomiting, diarrhea, constipation, 14:30 Neuro: Negative for altered mental status, 14:30 All other systems are negative, Exam: 14:36 Head/Face: Normocephalic, atraumatic. cp 14:36 Constitutional: The patient appears in no acute distress, alert, awake, non-toxic, well developed, well nourished, 14:36 Eyes: Periorbital structures: appear normal, Conjunctiva: normal, no exudate, no injection, Sclera: no appreciated abnormality, Lids and lashes: appear normal, bilaterally, 14:36 ENT: External ear(s): are unremarkable, Nose: is normal, Mouth: Lips: moist, Oral mucosa: moist, Posterior pharynx: Airway: no evidence of obstruction, patent, Tonsils: no enlargement, no exudate, erythema, that is mild, exudate, is not appreciated, 14:36 Neck: ROM/movement: Meningeal signs: are not present, nuchal rigidity, is not appreciated, 14:36 Chest/axilla: Inspection: normal, 14:36 Cardiovascular: Rate: normal, 14:36 Respiratory: the patient does not display signs of respiratory distress, Respirations: labored breathing, is not present, intercostal retractions, are absent, shallow respirations, are not present, Breath sounds: bronchial sounds, that are mild, are heard in the left posterior lower lobe, decreased breath sounds, are not appreciated, stridor, is not appreciated, wheezing: is not appreciated, 14:36 Abdomen/GI: Exam negative for discomfort, distension, guarding, Inspection: abdomen appears normal, Vital Signs: 12:54 BP 103 / 50; Pulse 71; Resp 15; Temp 99.2(O); Pulse Ox 97% on R/A; Weight 63.5 kg; cm10 Height 5 ft. 4 in. ; Pain 0/10; 15:24 jl7 12:54 Body Mass Index 24.03 (63.50 kg, 162.56 cm) cm10 12:54 Pain Scale: Adult cm10 15:24 Pt declined vitals at discharge jl7 MDM: 13:20 Medical Screening Exam initiated 13:45 Differential diagnosis: viral Infection, bronchitis, pneumonia UTI, gastroenteritis, cp meningitis. 15:15 Data reviewed: vital signs, nurses notes, lab test result(s), and as a result, I will cp discharge patient. 05/16 13:21 Order name: Urinalysis w/ reflexes; Complete Time: 15:04 cp 05/16 15:05 Interpretation: Normal except: [facility] Turbid; UBLD 2+; URBC 21-50. cp 05/16 13:21 Order name: RSV cp 05/16 13:21 Order name: Strep cp 05/16 13:44 Order name: SARS-COV-2 Antigen Rapid EDNH 05/16 13:44 Order name: Influenza Screen (A ; Complete Time: 14:50 EDNH 05/16 14:51 Interpretation: Reviewed. cp Administered Medications: No medications were administered Disposition Summary: 05/16/24 15:16 Discharge Ordered Notes: Location: Home cp Problem: new cp Symptoms: are unchanged cp Condition: Stable cp Diagnosis - Influenza due to identified novel influenza A virus with other respiratory cp manifestations Followup: cp - With: Private Physician - When: 2 - 3 days - Reason: Worsening of condition Discharge Instructions: - Discharge Summary Sheet cp - Influenza, Adult cp Forms: - Medication Reconciliation Form cp - Antibiotic Education cp - Prescription Opioid Use cp - Patient Portal Instructions cp - Leadership Thank You Letter cp Prescriptions: - Bromfed DM 2-30-10 mg/5 mL Oral syrup - administer 10 milliliter ORAL route every 6 hours as needed for cold symptoms; cp 240 milliliter; Refills: 0, Product Selection Permitted - Tamiflu 75 mg Oral capsule - take 1 tablet ORAL route every 12 hours for 5 days; 10 tablet; Refills: 0, cp Product Selection Permitted Addendum: 05/18/2024 09:33 Co-signature as Attending Physician, Shahab Fallon MD I agree with the assessment and c mckeon plan of care. Signatures: Dispatcher [employer] EDMS Shahab Fallon MD MD cha Page, Corey PA PA Nuzhat Moctezuma, RN RN cm10 Corrections: (The following items were deleted from the chart) 05/16 12:56 12:56 SARS-COV-2 Antigen Rapid+I.LAB.BRZ ordered. EDMS EDMS 13:45 13:21 SARS-COV-2 Antigen Rapid+I.LAB.BRZ ordered. EDMS EDMS 14:57 12:56 Influenza Screen (A \T\ B)+BA.LAB.BRZ ordered. EDMS EDMS 14:58 13:21 Influenza Screen (A \T\ B)+BA.LAB.BRZ ordered. EDMS EDMS 15:23 14:27 Chest Pa And Lat (2 Views)+RAD.RAD.BRZ ordered. EDMS EDMS
--- NOTE | 2024-05-16 15:16 | ER ---
Nurse's Notes [facility] Name: Addie Fong Age: 73 yrs Sex: Female : 1950 Arrival Date: 05/16/2024 Time: 12:38 Bed 23 Private MD: Diagnosis: Influenza due to identified novel influenza A virus with other respiratory manifestations Presentation: 05/16 12:54 Chief complaint: Patient states: Fever and Cough onset 2 days ago. Pt states that she cm10 just came home from a cruise on Wednesday. Pt had Tylenol 500mg at 1030. Coronavirus screen: Client indicates they have traveled out of the [place] in the last 14 days. Client traveled to: [place] cough unrelated to allergies, fever. Ebola Screen: Patient denies travel to an Ebola-affected area in the 21 days before illness onset. Initial Sepsis Screen: Does the patient meet any 2 criteria? No. Patient's initial sepsis screen is negative. Does the patient have a suspected source of infection? No. Patient's initial sepsis screen is negative. Risk Assessment: Do you want to hurt yourself or someone else? Patient reports no desire to harm self or others. Onset of symptoms was May 14, 2024. 12:54 Method Of Arrival: Ambulatory cm10 12:54 Acuity: SHAYY 4 cm10 Triage Assessment: 12:56 General: Appears in no apparent distress. uncomfortable, Behavior is calm, cooperative. cm10 Pain: Denies pain. Neuro: No deficits noted. Level of Consciousness is awake, alert, obeys commands, Oriented to person, place, time, situation, Appropriate for age. Respiratory: No deficits noted. Reports cough that is Airway is patent Respiratory effort is even, unlabored, Respiratory pattern is regular, symmetrical. Derm: No deficits noted. Skin is healthy with good turgor. Musculoskeletal: Range of motion: intact in all extremities. Historical: - Allergies: 12:56 Sulfa (Sulfonamide Antibiotics); cm10 - PMHx: 12:56 Adrenal gland issues; High Cholesterol; Hypertension; cm10 - Immunization history:: Adult Immunizations up to date. - Infectious Disease History:: Denies. - Social history:: Smoking status: Patient denies any tobacco usage or history of. Screenin:24 [facility] ED Fall Risk Assessment (Adult) History of falling in the last 3 months, jl7 including since admission No falls in past 3 months (0 pts) Confusion or Disorientation No (0 pts) Intoxicated or Sedated No (0 pts) Impaired Gait No (0 pts) Mobility Assist Device Used No (0 pt) Altered Elimination No (0 pt) Score/Fall Risk Level 0 - 2 = Low Risk Oriented to surroundings, Maintained a safe environment. Abuse screen: Denies threats or abuse. Denies injuries from another. Nutritional screening: No deficits noted. Tuberculosis screening: No symptoms or risk factors identified. Assessment: 14:40 General: Appears in no apparent distress. uncomfortable, Behavior is calm, cooperative. jl7 Pain: Denies pain. Neuro: Level of Consciousness is awake, alert, obeys commands, Oriented to person, place, time, situation. Cardiovascular: Patient's skin is warm and dry. Respiratory: Airway is patent Respiratory effort is even, unlabored, Respiratory pattern is regular, agonal. Derm: Skin is pink, warm \\T\\ dry. 15:10 Reassessment: Pt states "I am ready to leave. I don't want to stay any longer." ERP jl7 notified. Vital Signs: 12:54 BP 103 / 50; Pulse 71; Resp 15; Temp 99.2(O); Pulse Ox 97% on R/A; Weight 63.5 kg; cm10 Height 5 ft. 4 in. ; Pain 0/10; 15:24 jl7 12:54 Body Mass Index 24.03 (63.50 kg, 162.56 cm) cm10 12:54 Pain Scale: Adult cm10 15:24 Pt declined vitals at discharge jl7 ED Course: 12:45 Patient arrived in ED. ra3 12:55 Triage completed. cm10 12:57 Arm band placed on right wrist. Patient placed in waiting room. cm10 13:03 COVID swab sent to lab. Flu and/or RSV swab sent to lab. cm10 13:18 Shahab Trejo PA is PHCP. cp 13:18 Shahab Fallon MD is Attending Physician. cp 14:36 SARS-COV-2 Antigen Rapid Sent. jl7 14:36 Influenza Screen (A Sent. jl7 14:49 Strep Sent. jl7 14:49 RSV Sent. jl7 14:49 Urinalysis w/ reflexes Sent. jl7 15:22 Melton, Jahala, RN is Primary Nurse. jl7 15:24 Patient has correct armband on for positive identification. Provided Education on: jl7 discharge. 15:24 No provider procedures requiring assistance completed. Patient did not have IV access jl7 during this emergency room visit. Administered Medications: No medications were administered Medication: 15:24 VIS not applicable for this client. jl7 Outcome: 15:16 Discharge ordered by . ernie 15:24 Discharged to home ambulatory, 7 15:24 Condition: stable 15:24 Discharge instructions given to patient, family, Instructed on discharge instructions, follow up and referral plans. medication usage, Demonstrated understanding of instructions, follow-up care, medications, Prescriptions given X 2, 15:25 Patient left the ED. jl7 Signatures: Shahab Trejo PA PA cp Leal, Jahala, RN RN jl7 Nuzhat Wells RN RN cm10 Gemma Curtis ra3 Corrections: (The following items were deleted from the chart) 12:56 12:54 Coronavirus screen: Client denies travel out of the [place] in the last 14 days. [id number] 14:57 14:35 Influenza Screen (A \\T\\ B)+BA.LAB.BRZ drawn and sent. jl7 EDMS 14:58 14:35 Influenza Screen (A \\T\\ B)+BA.LAB.BRZ drawn and sent. 7 EDMS
[2024-05-19 01:26] VITALS: BP 103/50; TEMP 99.2; O2SAT 97
== END 2024-05-16 15:25 | disposition home or self-care (01) ==
LOC: ER 12:38
DX: J10.1 Influenza due to other identified influenza virus with other respiratory manifestations (principal); Z11.52 Encounter for screening for COVID-19
CPT/HCPCS: 36415; 81001; 87070; 87081; 87804; 87807; 87811; 99283